=== PATIENT | female | born 1985 | race Asian ===

== ENCOUNTER 2025-10-10 11:38 | Inpatient (IN) ==
[2025-10-11] MEDS ORDERED: OXYTOCIN 30 UNITS/NSS 30 UNITS/500 ML BAG IV PRN (08:50)
[2025-10-11] MEDS ORDERED: ACETAMINOPHEN 500 MG TAB PO PRN (08:50)
[2025-10-11] MEDS ORDERED: LIDOCAINE 1% LOCAL 20 ML VIAL INFIL PRN (08:50)
[2025-10-11 09:15] LABS: Hematocrit (blood only) 38.4 % (37.0-47.0); Hemoglobin 13.0 g/dL (12.0-16.0); Mean Corpuscular Hemoglobin 29.5 pg (25.0-34.0); Mean Corpuscular Volume 87.3 fL (80.0-100.0); Platelet Count 140 K/uL (130-400); RDW Standard Deviation 48.1 fL (36.4-46.3); Red Blood Count 4.40 M/uL (4.20-5.40); White Blood Count 7.60 K/ul (4.8-10.8)
[2025-10-11] MEDS: OXYTOCIN 30 UNITS/NSS 30 UNITS/500 ML BAG IV PRN (10:12)
[2025-10-11] MEDS: LACTATED RINGER'S 1,000 ML IV PRN (10:12)
--- NOTE | 2025-10-11 10:14 | History & Physical Report ---
Date of Service October 11, 2025 Assessment & Plan (1) Chronic hypertension affecting : (2) Encounter for supervision of elderly primigravida: (3) Hypothyroidism affecting : (4) Diabetes mellitus affecting : (5) Encounter for induction of labor: Plan Mariaa is a 40-year-old G1, P0 currently at 40 weeks 0 days gestational age presents for induction of labor for chronic hypertension and type 2 diabetes. 1. Fetus: Category 1 tracing. 2. Labor: Cervical ripening Ordonez placed and will run oxytocin per regular protocol. Plan for rupture after Ordonez is out 3. GBS negative 4. Chronic hypertension: Blood pressure is within normal range at present we will continue to monitor. 5. Type II DM: Every hour glucose and will start insulin protocol if needed. Admission and Anticipated Discharge Date Admission Date: October 11, 2025 History of Present Illness Primary Care Provider: Bandar Ray MD Mariaa is a 40-year-old G1, P0 currently at 40 weeks 0 days presents for induction of labor for type 2 diabetes and chronic hypertension. and Delivery Plans DM Protocol (Type 2 DM on Metformin) *Baby ASA daily, start 12-28wks, continue until del - started 03/31 *Ophthalmology consult - reminded to schedule *Dietary consult - working with Rema *Qmonthly urine cultures * [id number] 06/29/25----normal *Twice weekly NST's @32 or 34wks *Serial Growth US starting 28wks *Baseline 24hr Urine and Q trimester *EKG (Cardio [id number]) - completed NL *Deliver by [facility] IOL 10/11/25 (see tasks - pt aware rec is by 39 03/27 d/t cHTN) Hypothyroid *Check TFTs Q4wks AMA *Weekly NST's @36 wks CHTN---No Meds *Baby ASA daily start 12-28 wks, continue until delivery *wkly NST's @32wks and twice wkly @36 wks *Serial Growth US @ 24 (doppler only if abnml) *Baseline 24hr urine (additioinal PRN) *weekly AMRITA's @ 32wk(If on Meds) *Deliver [id number] (If on Meds) *Deliver [id number] (Not on Meds) Smoking in says socially, rec dc Lab Results OB Labs: Blood Type O Positive 03/03/25 Antibody Screen NEGATIVE 03/03/25 Hgb 11.6 g/dl (12.0-16.0) L 07/29/25 Hct 35.5 % (37.0-47.0) L 07/29/25 MCV 85.4 fL (80.0-100.0) 03/03/25 Plt Count 213 K/uL (130-400) 03/03/25 Rubella IgG Antibody Immune (Immune) 03/03/25 Treponema pallidum Ab Negative (Negative) 07/29/25 Hep Bs Antigen Negative (Negative) 03/03/25 Hepatitis C Antibody Negative (Negative) 03/03/25 HIV 1&2 Ab/P24 Ag 4thGn Negative (Negative) 03/03/25 Maternal Serum AFP 27.6 ng/mL 04/28/25 OB Optional Labs: Chlamydia trachomatis RNA Not Detected (NotDetected) 03/03/25 Neisseria gonorrhoeae RNA Not Detected (NotDetected) 03/03/25 Thyroid Stimulating Hormone (TSH) 3.843 uIu/ml (0.300-4.500) 09/24/25 Alpha Fetoprotein Triple Screen SEE NOTE 04/28/25 Allergies Allergy/AdvReac Type Severity Reaction Status Date / Time No Known Allergies Allergy Verified 10/08/25 09:03 Home Medications Medication Instructions Recorded Confirmed Type docosahexaenoic acid [ DHA] PO 06/25/24 10/08/25 History omega 3-dha 500 mg-epa 100 mg-fish 1 cap PO DAILY 10/28/24 10/11/25 History oil capsule acetone (urine) test (Ketone Urine #50 ea 02/15/25 10/08/25 Rx Test strips) escitalopram oxalate 10 mg tablet 10 mg PO DAILY #60 tabs 02/16/25 10/11/25 Rx clobetasol topical 02/23/25 10/08/25 History blood sugar diagnostic (OneTouch #100 ea 03/18/25 10/08/25 Rx Verio test strips) lancets 33 gauge (OneTouch Delica #100 ea 03/18/25 10/08/25 Rx Plus Lancet) pen needle, diabetic 32 gauge x #100 ea 03/18/25 10/08/25 Rx 5/32" aspirin 81 mg tablet 81 mg PO DAILY 04/30/25 10/11/25 History blood-glucose sensor (Dexcom G7 #3 ea 06/07/25 10/08/25 Rx Sensor device) metformin 500 mg tablet,extended 500 mg PO BID #180 tabs 06/07/25 10/11/25 Rx release 24 hr choline bitartrate 800 mg PO 08/23/25 10/08/25 History ferrous sulfate 325 mg PO 08/23/25 10/08/25 History Novolog FlexPen U-100 Insulin 100 150 unit (1.5 mL) subcut DAILY 30 09/06/25 10/11/25 Rx unit/mL (3 mL) subcutaneous days #45 mL (insulin aspart U-100) Semglee(insulin glarg-yfgn)Pen 100 75 unit (0.75 mL) subcut QPM 30 09/06/25 10/08/25 Rx unit/mL (3 mL) subcutaneous days #30 mL (insulin glargine-yfgn) breast pump #1 ea 09/10/25 10/08/25 Rx levothyroxine 112 mcg tablet 112 mcg PO DAILY #100 tabs 09/27/25 10/11/25 Rx Patient History Medical History AMA (advanced maternal age) multigravida 35+ Thickened endometrium Pelvic pain Vulvar itching Anxiety Dyslipidemia PCOS (polycystic ovarian syndrome) Hypothyroid History of COVID-19 PCOS (polycystic ovarian syndrome) Diabetes mellitus, type 2 Hypothyroidism Hypertension Dyslipidemia Panic attacks Surgical History Uterine polyp Status post hysteroscopy Hx of dilation and curettage S/P surgery on nasal septum Family History Mother Arthritis Hypertension Father Hypertension Diabetes Dyslipidemia Stroke Sister Dyslipidemia PCOS (polycystic ovarian syndrome) Hypothyroid Uncle Tuberculosis Aunt Cancer Denies family history of Ovarian cancer Breast cancer Colorectal cancer Social History (Updated 10/11/25 @ 08:42 by Keri Bahena RN) Smoking Status: Former smoker Tobacco Type: Cigarettes Cigarettes Per Day: "occasionally when out with friends"; Second Hand Exposure: No; Do You Dip or Chew Tobacco: No; Tobacco Cessation Education Requested by Patient: No Hx Alcohol Use: Yes Hx Substance Use: No Preferred Language: Japanese Communication Ability: Effective Visual Impairment: No Limitations Radiologist Chief Of Breast Imaging Required: No Beliefs That Will Affect Care: None marital status: marital status details: Luciano Sam (50) [phone] Current Living Situation: Spouse Current Living Situation Comment: Lives alone current occupational status: employed 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 Other Information That Helps Us Care for You: No Feels Safe at Home: Yes Safety Concerns: Feels Safe At This Time Assistive Devices: Glasses Physical Exam Genitourinary: normal external appearance OB Exam Abdomen: + vertex Manual OB Exam: + cervical dilation 1 cm, + cervical effacement 50% and + station high OB Exam Monitor Tracing: + external FHT monitor used, + external uterine monitor used, + category I and + normal FHT variability Cervical Ordonez placed after patient verbally consented Results & Data Vital Signs (Past 12 Hours) Vital Signs Temp Pulse Resp BP 10/11/25 08:56 36.7 C 18 10/11/25 08:34 36.7 C 100 H 18 122/83 Coding Level of Care Code None Diagnoses Chronic hypertension affecting O10.919 Encounter for supervision of primigravida of advanced maternal age in third trimester O09.513 Trimester: third trimester Hypothyroidism affecting in third trimester O99.283; E03.9 Trimester: third trimester Diabetes mellitus affecting in third trimester O24.913 Trimester: third trimester Encounter for induction of labor Z34.90 (2) Encounter for supervision of elderly primigravida Trimester: third trimester Qualified Code(s): O09.513 - Supervision of elderly primigravida, third trimester (3) Hypothyroidism affecting Trimester: third trimester Qualified Code(s): O99.283 - Endocrine, nutritional and metabolic diseases complicating , third trimester; E03.9 - Hypothyroidism, unspecified (4) Diabetes mellitus affecting Trimester: third trimester Qualified Code(s): O24.913 - Unspecified diabetes mellitus in , third trimester
[2025-10-11] MEDS: CALCIUM CARBONATE 500 MG CHEWABLE TAB PO PRN (12:31)
[2025-10-11] MEDS ORDERED: LIDOCAINE 2% MPF LOCAL 5 ML VIAL EPI PRN (15:18)
[2025-10-11] MEDS ORDERED: SODIUM CHLORIDE 0.9% PF INJ 10 ML VIAL EPI PRN (15:18)
[2025-10-11] MEDS ORDERED: NALOXONE HCL 1 MG in SODIUM CHLORIDE 0.9% 1,000 ML IV PRN (15:18)
[2025-10-11] MEDS ORDERED: diphenhydrAMINE 50 MG/ML VIAL IV PRN (15:18)
[2025-10-11] MEDS ORDERED: NALBUPHINE HCL INJ 10 MG/ML AMP IV PRN (15:18)
[2025-10-11] MEDS ORDERED: NALOXONE HCL 0.4 MG/1 ML VIAL/CARP IV PRN (15:18)
[2025-10-11] MEDS ORDERED: PROMETHAZINE 6.25 MG/50.25 ML BAG IV PRN (15:18)
[2025-10-11] MEDS ORDERED: BUPIVACAINE 0.25% PF 30 ML VIAL EPI PRN (15:18)
[2025-10-11] MEDS ORDERED: ROPIVACAINE 0.5% PF 5 MG/ML 20 ML VIAL EPI PRN (15:18)
[2025-10-11] MEDS ORDERED: ONDANSETRON INJ 2 MG/ML 2 ML VIAL IV PRN (15:18)
--- NOTE | 2025-10-11 15:18 | Anesthesiology Consultation ---
Date of Service October 11, 2025 Assessment & Plan ASA ASA2 Proposed Anesthesia Anesthesia Type: Labor Epidural Risk / Benefits Reviewed With: PT / POA / Parent / Guardian, Accepts Plan and Informed Consent Obtained History Height/Weight Height: 5 ft 4 in Weight: 77.111 kg Allergies Allergy/AdvReac Type Severity Reaction Status Date / Time No Known Allergies Allergy Verified 10/08/25 09:03 Medications Home Medications Medication Instructions Recorded Confirmed Last Taken docosahexaenoic acid [ DHA] PO 06/25/24 10/08/25 Unknown omega 3-dha 500 mg-epa 100 mg-fish 1 cap PO DAILY 10/28/24 10/11/25 10/10/25 oil capsule acetone (urine) test (Ketone Urine #50 ea 02/15/25 10/08/25 Unknown Test strips) escitalopram oxalate 10 mg tablet 10 mg PO DAILY #60 tabs 02/16/25 10/11/25 Unknown clobetasol topical 02/23/25 10/08/25 Unknown blood sugar diagnostic (OneTouch #100 ea 03/18/25 10/08/25 Unknown Verio test strips) lancets 33 gauge (OneTouch Delica #100 ea 03/18/25 10/08/25 Unknown Plus Lancet) pen needle, diabetic 32 gauge x #100 ea 03/18/25 10/08/25 Unknown 5/32" aspirin 81 mg tablet 81 mg PO DAILY 04/30/25 10/11/25 10/11/25 blood-glucose sensor (Dexcom G7 #3 ea 06/07/25 10/08/25 Unknown Sensor device) metformin 500 mg tablet,extended 500 mg PO BID #180 tabs 06/07/25 10/11/25 10/10/25 release 24 hr choline bitartrate 800 mg PO 08/23/25 10/08/25 Unknown ferrous sulfate 325 mg PO 08/23/25 10/08/25 10/11/25 Novolog FlexPen U-100 Insulin 100 150 unit (1.5 mL) subcut DAILY 30 09/06/25 10/11/25 10/10/25 unit/mL (3 mL) subcutaneous days #45 mL (insulin aspart U-100) Semglee(insulin glarg-yfgn)Pen 100 75 unit (0.75 mL) subcut QPM 30 09/06/25 10/08/25 Unknown unit/mL (3 mL) subcutaneous days #30 mL (insulin glargine-yfgn) breast pump #1 ea 09/10/25 10/08/25 Unknown levothyroxine 112 mcg tablet 112 mcg PO DAILY #100 tabs 09/27/25 10/11/25 10/11/25 Active Medications Generic Name Dose Route Start Last Admin Trade Name Freq PRN Reason Stop Dose Admin Calcium Carbonate 1,000 mg 10/11/25 08:50 10/11/25 12:31 Calcium Carbonate 500 Mg Chewable Tab PO 11/10/25 08:49 1,000 mg Q8H PRN Administration Indigestion Lactated Ringer's 1,000 mls @ 125 mls/hr 10/11/25 08:50 10/11/25 10:12 Lr IV 10/13/25 08:49 125 mls/hr .Q8H PRN Administration L&D Protocol Protocol Oxytocin 30 units in 500 mls @ 12 mls/hr 10/11/25 08:52 10/11/25 14:15 Pitocin 30 Units/Nss IV 10/13/25 08:51 0.72 units/hr .Q24H PRN 12 mls/hr Labor Induction/Augmentation Titration Protocol 0.72 UNITS/HR Past Medical History Medical History AMA (advanced maternal age) multigravida 35+ Thickened endometrium Pelvic pain Vulvar itching Anxiety Dyslipidemia PCOS (polycystic ovarian syndrome) Hypothyroid History of COVID-2022, not hosp; used inhaler for about 1 month>resolved PCOS (polycystic ovarian syndrome) Diabetes mellitus, type 2 NIDDM Hypothyroidism Hypertension Dyslipidemia Panic attacks hx Exercise / Class Metabolic Activity II 4-5 Yardwork/Stairs/Walk up hill Past Family History Family History Mother Arthritis Hypertension Father Hypertension Diabetes Dyslipidemia Stroke Sister Dyslipidemia PCOS (polycystic ovarian syndrome) Hypothyroid Uncle Tuberculosis Aunt Cancer "blood cancer" Denies family history of Ovarian cancer Breast cancer Colorectal cancer Past Surgical History Surgical History Uterine polyp Removal 03/2024 Status post hysteroscopy 03/2024 Hx of dilation and curettage 03/2024 S/P surgery on nasal septum Past Anesthesia History No Hx of Anesthesia Complications and No Family Hx of Anesthesia Complications History of PONV No Hx of PONV and No Hx of Motion Sickness Social History Smoking Status: Former smoker Smoking cigarettes per day: "occasionally when out with friends" Do You Dip or Chew Tobacco: No Hx Alcohol Use: Yes alcohol intake frequency: holidays/special occasions only Hx Substance Use: No substance use type: does not use Review of Systems denies fever/cough/ colds/ chest pain/ SOB/ DANISH denies DANISH Physical Exam Vital Signs Last Vital Signs Temp 36.6 C 10/11/25 12:45 Pulse 67 10/11/25 14:33 Resp 18 10/11/25 14:33 BP 140/85 10/11/25 14:31 ENMT Mouth: no TMJ abnormality and no dentition abnormality Thyromental Distance: > or= 3.5 Finger Breadths Mallampati Class: II Neck neck extension not limited Respiratory normal respiratory effort; no respiratory distress Auscultation: lungs clear to auscultation bilaterally Cardiovascular Rate/Rhythm: regular rate and regular rhythm Neurologic moves all extremities Psychiatric Orientation: alert and oriented x 3 Testing Laboratory Results 10/11/25 08:59 Blood Type O Positive 10/11/25 08:59 Antibody Screen NEGATIVE 10/11/25 08:59 10/11/25 10/11/25 10/11/25 11:35 10:45 09:49 POC Glucose 92 104 H 109 H
[2025-10-11] MEDS: fentANYL 2 MCG/ML BUPIVacaine 0.125%-NSS 100ML BAG ONE (15:47)
[2025-10-11] MEDS: LIDOCAINE 2%/EPINEPHRINE 1:200,000 20 ML PF ONE (15:48)
[2025-10-11] MEDS: BUPIVACAINE 0.25% PF 30 ML VIAL ONE (15:48)
[2025-10-11] MEDS: SODIUM CHLORIDE 0.9% PF INJ 10 ML VIAL EPI STA (16:03)
[2025-10-11] MEDS: BUPIVACAINE 0.25% PF 30 ML VIAL EPI STA (16:03)
[2025-10-11] MEDS: LIDOCAINE 2%/EPINEPHRINE 1:200,000 20 ML PF EPI STA (16:03)
[2025-10-11] MEDS: SODIUM CHLORIDE 0.9% PF INJ 10 ML VIAL ONE (16:04)
--- NOTE | 2025-10-11 22:34 | Labor Progress Brief Note ---
Date of Service October 11, 2025 Subjective Presents to bedside for evaluation as cervical ripening Ordonez has expelled in the last hour. Patient comfortable with epidural. Blood sugars in the 100s to 110s Assessment & Plan (1) Chronic hypertension affecting : (2) Encounter for supervision of elderly primigravida: Trimester: third trimester Qualified Code(s): O09.513 - Supervision of elderly primigravida, third trimester (3) Hypothyroidism affecting : Trimester: third trimester Qualified Code(s): O99.283 - Endocrine, nutritional and metabolic diseases complicating , third trimester; E03.9 - Hypothyroidism, unspecified (4) Diabetes mellitus affecting : Trimester: third trimester Qualified Code(s): O24.913 - Unspecified diabetes mellitus in , third trimester (5) Encounter for induction of labor: Kameron Leroy is a 40-year-old G1, P0 currently at 40 weeks 0 days gestational age presents for induction of labor for chronic hypertension and type 2 diabetes. 1. Fetus: Category 1 tracing. 2. Labor: Status post cervical ripening Ordonez. Continue oxytocin per regular protocol. AROM for clear. 3. GBS negative 4. Chronic hypertension: Blood pressure is within normal range at present we will continue to monitor. 5. Type II DM: hourly glucose per Dexcom verified as accurate in comparison to labor and delivery bedside blood glucose. Will start insulin protocol if needed. Admission and Anticipated Discharge Date Admission Date: October 11, 2025 Physical Exam Genitourinary: normal external appearance Manual OB Exam: + cervical dilation 3 cm, + cervical effacement 50%, + station high and + amniotic fluid (AROM) clear OB Exam Monitor Tracing: + external FHT monitor used, + external uterine monitor used, + category I and + normal FHT variability Results & Data Vital Signs (Past 12 Hours) Vital Signs Temp Pulse Pulse Resp BP Pulse Ox Pulse Ox 10/11/25 22:29 101 H 98 10/11/25 22:26 100 H 120/81 10/11/25 22:24 97 H 98 10/11/25 22:19 97 H 98 10/11/25 22:14 110 H 97 10/11/25 22:11 107 H 121/82 10/11/25 22:09 113 H 97 10/11/25 22:04 110 H 97 10/11/25 22:00 18 10/11/25 22:00 36.8 C 18 10/11/25 21:59 101 H 98 10/11/25 21:54 107 H 100 10/11/25 21:49 99 H 99 10/11/25 21:44 103 H 99 10/11/25 21:43 101 H 125/82 10/11/25 21:39 99 H 98 10/11/25 21:34 101 H 98 10/11/25 21:30 18 10/11/25 21:30 18 10/11/25 21:29 98 H 98 10/11/25 21:27 96 H 131/84 10/11/25 21:24 100 H 98 10/11/25 21:19 99 H 97 10/11/25 21:14 105 H 99 10/11/25 21:12 96 H 134/86 10/11/25 21:09 100 H 98 10/11/25 21:04 99 H 97 10/11/25 21:00 18 10/11/25 21:00 18 10/11/25 20:59 101 H 99 10/11/25 20:58 105 H 123/81 10/11/25 20:54 102 H 97 10/11/25 20:49 110 H 98 10/11/25 20:44 118 H 98 10/11/25 20:42 103 H 134/85 10/11/25 20:39 108 H 98 10/11/25 20:34 103 H 97 10/11/25 20:30 18 10/11/25 20:30 18 10/11/25 20:29 99 10/11/25 20:29 107 H 10/11/25 20:29 97 H 127/84 10/11/25 20:23 112 H 97 10/11/25 20:18 103 H 99 10/11/25 20:13 102 H 97 10/11/25 20:12 114 H 123/86 10/11/25 20:08 108 H 99 10/11/25 20:03 124 H 100 10/11/25 20:00 18 10/11/25 20:00 18 10/11/25 19:58 110 H 99 10/11/25 19:56 109 H 114/68 10/11/25 19:53 115 H 99 10/11/25 19:48 111 H 99 10/11/25 19:43 113 H 100 10/11/25 19:41 117 H 107/68 10/11/25 19:38 117 H 100 10/11/25 19:33 126 H 100 10/11/25 19:30 18 10/11/25 19:30 18 10/11/25 19:28 114 H 104/70 99 10/11/25 19:23 112 H 100 10/11/25 19:18 111 H 99 10/11/25 19:13 120 H 99 10/11/25 19:08 117 H 100 10/11/25 19:03 117 H 98 10/11/25 19:02 37.0 C 18 10/11/25 19:00 18 10/11/25 19:00 18 10/11/25 18:58 100 10/11/25 18:58 120 H 10/11/25 18:58 115 H 119/75 10/11/25 18:53 106 H 98 10/11/25 18:48 112 H 98 10/11/25 18:43 124 H 98 10/11/25 18:42 114 H 122/76 10/11/25 18:38 106 H 98 10/11/25 18:33 115 H 99 10/11/25 18:28 98 10/11/25 18:28 120 H 10/11/25 18:28 114 H 128/75 10/11/25 18:23 117 H 100 10/11/25 18:18 118 H 98 10/11/25 18:13 115 H 99 10/11/25 18:12 100 H 128/79 10/11/25 18:08 114 H 100 10/11/25 18:03 108 H 100 10/11/25 17:58 98 H 129/95 98 10/11/25 17:53 99 H 100 10/11/25 17:48 103 H 99 10/11/25 17:43 100 10/11/25 17:43 103 H 10/11/25 17:43 105 H 133/87 10/11/25 17:38 105 H 100 10/11/25 17:33 96 H 99 10/11/25 17:28 115 H 100 10/11/25 17:27 93 H 141/90 H 10/11/25 17:23 97 H 100 10/11/25 17:18 107 H 100 10/11/25 17:13 99 H 100 10/11/25 17:11 99 H 140/89 10/11/25 17:08 97 H 99 10/11/25 17:03 98 H 96 10/11/25 17:00 18 10/11/25 17:00 18 10/11/25 16:58 101 H 100 10/11/25 16:57 99 H 139/80 10/11/25 16:53 102 H 100 10/11/25 16:48 88 100 10/11/25 16:43 87 100 10/11/25 16:42 87 154/97 H 10/11/25 16:39 81 147/85 H 10/11/25 16:38 85 100 10/11/25 16:37 96 H 137/81 10/11/25 16:35 82 136/86 10/11/25 16:34 85 134/75 10/11/25 16:33 82 98 10/11/25 16:31 85 91/63 L 10/11/25 16:30 83 87/54 L 10/11/25 16:28 81 100 10/11/25 16:25 75 102/63 10/11/25 16:23 93 10/11/25 16:23 76 10/11/25 16:23 79 80/47 L 94 10/11/25 16:21 81 97/63 L 10/11/25 16:18 88 100 10/11/25 16:16 88 100/59 L 10/11/25 16:13 89 100 10/11/25 16:08 104 H 99 10/11/25 16:03 106 H 100 10/11/25 16:00 36.6 C 98 H 18 130/78 10/11/25 15:58 100 10/11/25 15:58 104 H 10/11/25 15:58 104 H 122/78 10/11/25 15:56 101 H 121/82 10/11/25 15:54 98 H 122/83 10/11/25 15:53 102 H 99 10/11/25 15:52 93 H 124/82 10/11/25 15:51 93 H 119/80 10/11/25 15:50 88 128/86 10/11/25 15:48 99 10/11/25 15:48 92 H 10/11/25 15:48 89 133/87 10/11/25 15:46 85 126/87 10/11/25 15:43 78 99 10/11/25 15:38 93 H 100 10/11/25 15:35 98 10/11/25 15:33 89 99 10/11/25 15:26 91 H 129/91 10/11/25 14:45 18 10/11/25 14:45 18 10/11/25 14:33 67 18 10/11/25 14:31 43 L 140/85 10/11/25 14:26 44 L 129/83 10/11/25 13:45 18 10/11/25 13:45 18 10/11/25 13:27 83 130/84 10/11/25 12:45 18 10/11/25 12:45 36.6 C 18 10/11/25 12:25 89 18 112/86 10/11/25 11:26 94 H 18 125/85 O2 Del Method 10/11/25 22:29 10/11/25 22:26 10/11/25 22:24 10/11/25 22:19 10/11/25 22:14 10/11/25 22:11 10/11/25 22:09 10/11/25 22:04 10/11/25 22:00 10/11/25 22:00 10/11/25 21:59 10/11/25 21:54 10/11/25 21:49 10/11/25 21:44 10/11/25 21:43 10/11/25 21:39 10/11/25 21:34 10/11/25 21:30 10/11/25 21:30 10/11/25 21:29 10/11/25 21:27 10/11/25 21:24 10/11/25 21:19 10/11/25 21:14 10/11/25 21:12 10/11/25 21:09 10/11/25 21:04 10/11/25 21:00 10/11/25 21:00 10/11/25 20:59 10/11/25 20:58 10/11/25 20:54 10/11/25 20:49 10/11/25 20:44 10/11/25 20:42 10/11/25 20:39 10/11/25 20:34 10/11/25 20:30 10/11/25 20:30 10/11/25 20:29 10/11/25 20:29 10/11/25 20:29 10/11/25 20:23 10/11/25 20:18 10/11/25 20:13 10/11/25 20:12 10/11/25 20:08 10/11/25 20:03 10/11/25 20:00 10/11/25 20:00 10/11/25 19:58 10/11/25 19:56 10/11/25 19:53 10/11/25 19:48 10/11/25 19:43 10/11/25 19:41 10/11/25 19:38 10/11/25 19:33 10/11/25 19:30 10/11/25 19:30 10/11/25 19:28 10/11/25 19:23 10/11/25 19:18 10/11/25 19:13 10/11/25 19:08 10/11/25 19:03 10/11/25 19:02 10/11/25 19:00 10/11/25 19:00 10/11/25 18:58 10/11/25 18:58 10/11/25 18:58 10/11/25 18:53 10/11/25 18:48 10/11/25 18:43 10/11/25 18:42 10/11/25 18:38 10/11/25 18:33 10/11/25 18:28 10/11/25 18:28 10/11/25 18:28 10/11/25 18:23 10/11/25 18:18 10/11/25 18:13 10/11/25 18:12 10/11/25 18:08 10/11/25 18:03 10/11/25 17:58 10/11/25 17:53 10/11/25 17:48 10/11/25 17:43 10/11/25 17:43 10/11/25 17:43 10/11/25 17:38 10/11/25 17:33 10/11/25 17:28 10/11/25 17:27 10/11/25 17:23 10/11/25 17:18 10/11/25 17:13 10/11/25 17:11 10/11/25 17:08 10/11/25 17:03 10/11/25 17:00 10/11/25 17:00 10/11/25 16:58 10/11/25 16:57 10/11/25 16:53 10/11/25 16:48 10/11/25 16:43 10/11/25 16:42 10/11/25 16:39 10/11/25 16:38 10/11/25 16:37 10/11/25 16:35 10/11/25 16:34 10/11/25 16:33 10/11/25 16:31 10/11/25 16:30 10/11/25 16:28 10/11/25 16:25 10/11/25 16:23 10/11/25 16:23 10/11/25 16:23 10/11/25 16:21 10/11/25 16:18 10/11/25 16:16 10/11/25 16:13 10/11/25 16:08 10/11/25 16:03 10/11/25 16:00 10/11/25 15:58 10/11/25 15:58 10/11/25 15:58 10/11/25 15:56 10/11/25 15:54 10/11/25 15:53 10/11/25 15:52 10/11/25 15:51 10/11/25 15:50 10/11/25 15:48 10/11/25 15:48 10/11/25 15:48 10/11/25 15:46 10/11/25 15:43 10/11/25 15:38 10/11/25 15:35 Room Air 10/11/25 15:33 10/11/25 15:26 10/11/25 14:45 10/11/25 14:45 10/11/25 14:33 10/11/25 14:31 10/11/25 14:26 10/11/25 13:45 10/11/25 13:45 10/11/25 13:27 10/11/25 12:45 10/11/25 12:45 10/11/25 12:25 10/11/25 11:26 Coding Level of Care Code None Diagnoses Chronic hypertension affecting O10.919 Encounter for supervision of primigravida of advanced maternal age in third trimester O09.513 Trimester: third trimester Hypothyroidism affecting in third trimester O99.283; E03.9 Trimester: third trimester Diabetes mellitus affecting in third trimester O24.913 Trimester: third trimester Encounter for induction of labor Z34.90
[2025-10-11] MEDS: fentANYL 2 MCG/ML BUPIVacaine 0.125%-NSS 100ML BAG EPI PRN (23:27)
[2025-10-11] MEDS: FAMOTIDINE 20MG IV PUSH 20 MG/5 ML SYR IV SCH (23:34)
--- NOTE | 2025-10-12 06:37 | Labor Progress Brief Note ---
Date of Service October 12, 2025 Subjective Presented to bedside for evaluation. Contractions have spaced considerably. Assessment & Plan (1) Chronic hypertension affecting : (2) Encounter for supervision of elderly primigravida: Trimester: third trimester Qualified Code(s): O09.513 - Supervision of elderly primigravida, third trimester (3) Hypothyroidism affecting : Trimester: third trimester Qualified Code(s): O99.283 - Endocrine, nutritional and metabolic diseases complicating , third trimester; E03.9 - Hypothyroidism, unspecified (4) Diabetes mellitus affecting : Trimester: third trimester Qualified Code(s): O24.913 - Unspecified diabetes mellitus in , third trimester (5) Encounter for induction of labor: Kameron Leroy is a 40-year-old G1, P0 currently at 40 weeks 0 days gestational age presents for induction of labor for chronic hypertension and type 2 diabetes. 1. Fetus: Category 1 tracing. 2. Labor: Status post cervical ripening [place]. Contractions have spaced considerably. Will shut off Pitocin for a Pitocin break and will plan to restart back at 10 and approximately 20 to 30 minutes. AROM for clear. IUPC placed 3. GBS negative 4. Chronic hypertension: Blood pressure is within normal range at present we will continue to monitor. 5. Type II DM: hourly glucose per Dexcom verified as accurate in comparison to labor and delivery bedside blood glucose. Will start insulin protocol if needed. Has been in the 90s-110s Admission and Anticipated Discharge Date Admission Date: October 11, 2025 Physical Exam Genitourinary: normal external appearance Manual OB Exam: + cervical dilation (3-4), + cervical effacement 70%, + station high and + amniotic fluid clear OB Exam Monitor Tracing: + external FHT monitor used, + external uterine monitor used, + category I and + normal FHT variability Discussed placement of IUPC and patient verbally consented. IUPC placed without difficulty Results & Data Vital Signs (Past 12 Hours) Vital Signs Temp Pulse Resp BP Pulse Ox 10/12/25 06:29 90 100 10/12/25 06:28 90 127/83 10/12/25 06:24 90 99 10/12/25 06:19 96 H 98 10/12/25 06:14 89 98 10/12/25 06:12 87 130/87 10/12/25 06:09 92 H 99 10/12/25 06:04 90 98 10/12/25 06:00 18 10/12/25 06:00 18 10/12/25 05:59 88 98 10/12/25 05:57 90 132/84 10/12/25 05:54 88 99 10/12/25 05:49 91 H 100 10/12/25 05:44 97 H 99 10/12/25 05:42 93 H 109/67 10/12/25 05:39 92 H 98 10/12/25 05:34 95 H 97 10/12/25 05:30 18 10/12/25 05:30 18 10/12/25 05:29 94 H 109/65 98 10/12/25 05:24 92 H 98 10/12/25 05:19 93 H 97 10/12/25 05:14 95 H 98 10/12/25 05:11 93 H 112/68 10/12/25 05:09 94 H 98 10/12/25 05:04 94 H 98 10/12/25 05:00 18 10/12/25 05:00 36.8 C 18 10/12/25 04:59 95 H 97 10/12/25 04:56 93 H 116/68 10/12/25 04:54 93 H 97 10/12/25 04:49 95 H 98 10/12/25 04:44 98 H 98 10/12/25 04:41 96 H 114/68 10/12/25 04:39 94 H 97 10/12/25 04:34 94 H 97 10/12/25 04:29 94 H 97 10/12/25 04:26 94 H 110/65 10/12/25 04:24 94 H 97 10/12/25 04:19 95 H 97 10/12/25 04:14 95 H 97 10/12/25 04:12 93 H 108/60 10/12/25 04:09 95 H 96 10/12/25 04:04 101 H 97 10/12/25 03:59 97 H 97 10/12/25 03:56 98 H 108/66 10/12/25 03:54 98 H 96 10/12/25 03:49 106 H 96 10/12/25 03:44 95 H 96 10/12/25 03:41 100 H 108/65 10/12/25 03:39 96 H 97 10/12/25 03:34 98 H 97 10/12/25 03:29 99 H 97 10/12/25 03:26 96 H 105/63 10/12/25 03:24 99 H 98 10/12/25 03:19 94 H 99 10/12/25 03:14 91 H 99 10/12/25 03:12 93 H 120/78 10/12/25 03:09 89 97 10/12/25 03:04 89 97 10/12/25 03:00 18 10/12/25 03:00 36.8 C 18 10/12/25 02:59 88 97 10/12/25 02:57 86 128/75 10/12/25 02:54 91 H 97 10/12/25 02:49 90 99 10/12/25 02:44 89 97 10/12/25 02:41 95 H 124/81 10/12/25 02:39 88 97 10/12/25 02:34 88 98 10/12/25 02:30 16 10/12/25 02:30 16 10/12/25 02:29 89 97 10/12/25 02:27 94 H 126/80 10/12/25 02:24 91 H 97 10/12/25 02:19 93 H 96 10/12/25 02:14 92 H 97 10/12/25 02:12 94 H 124/84 10/12/25 02:09 95 H 97 10/12/25 02:04 91 H 96 10/12/25 02:00 18 10/12/25 02:00 18 10/12/25 01:59 89 97 10/12/25 01:57 92 H 124/82 10/12/25 01:54 92 H 97 10/12/25 01:49 93 H 97 10/12/25 01:44 96 H 97 10/12/25 01:43 94 H 129/83 10/12/25 01:39 94 H 97 10/12/25 01:34 104 H 97 10/12/25 01:30 20 10/12/25 01:30 20 10/12/25 01:29 99 H 97 10/12/25 01:26 100 H 122/81 10/12/25 01:24 99 H 97 10/12/25 01:19 102 H 97 10/12/25 01:14 104 H 98 10/12/25 01:12 99 H 121/76 10/12/25 01:09 101 H 97 10/12/25 01:04 100 H 97 10/12/25 01:00 18 10/12/25 01:00 36.7 C 18 10/12/25 00:59 100 H 98 10/12/25 00:56 100 H 107/64 10/12/25 00:54 99 H 97 10/12/25 00:49 99 H 97 10/12/25 00:44 100 H 97 10/12/25 00:41 96 H 112/66 10/12/25 00:39 100 H 97 10/12/25 00:34 101 H 96 10/12/25 00:30 18 10/12/25 00:30 18 10/12/25 00:29 97 H 98 10/12/25 00:26 100 H 120/73 10/12/25 00:24 100 H 98 10/12/25 00:19 93 H 98 10/12/25 00:14 95 H 97 10/12/25 00:11 94 H 126/79 10/12/25 00:09 100 H 99 10/12/25 00:04 93 H 97 10/12/25 00:00 18 10/12/25 00:00 18 10/11/25 23:59 104 H 99 10/11/25 23:58 93 H 126/81 10/11/25 23:54 92 H 98 10/11/25 23:49 94 H 97 10/11/25 23:44 97 H 97 10/11/25 23:42 95 H 126/82 10/11/25 23:39 97 H 97 10/11/25 23:34 101 H 99 10/11/25 23:30 18 10/11/25 23:30 18 10/11/25 23:29 95 H 97 10/11/25 23:27 36.7 C 96 H 18 118/76 10/11/25 23:24 96 H 96 10/11/25 23:19 100 H 99 10/11/25 23:14 95 H 96 10/11/25 23:11 100 H 124/85 10/11/25 23:09 101 H 98 10/11/25 23:04 102 H 97 10/11/25 23:00 18 10/11/25 23:00 18 10/11/25 22:59 101 H 96 10/11/25 22:56 99 H 114/78 10/11/25 22:54 104 H 98 10/11/25 22:49 101 H 98 10/11/25 22:44 98 H 97 10/11/25 22:41 97 H 124/80 10/11/25 22:39 99 H 96 10/11/25 22:34 98 H 98 10/11/25 22:29 101 H 98 10/11/25 22:26 36.8 C 100 H 18 120/81 10/11/25 22:24 97 H 98 10/11/25 22:19 97 H 98 10/11/25 22:14 110 H 97 10/11/25 22:11 107 H 121/82 10/11/25 22:09 113 H 97 10/11/25 22:04 110 H 97 10/11/25 22:00 18 10/11/25 22:00 36.8 C 18 10/11/25 21:59 101 H 98 10/11/25 21:54 107 H 100 10/11/25 21:49 99 H 99 10/11/25 21:44 103 H 99 10/11/25 21:43 101 H 125/82 10/11/25 21:39 99 H 98 10/11/25 21:34 101 H 98 10/11/25 21:30 18 10/11/25 21:30 18 10/11/25 21:29 98 H 98 10/11/25 21:27 96 H 131/84 10/11/25 21:24 100 H 98 10/11/25 21:19 99 H 97 10/11/25 21:14 105 H 99 10/11/25 21:12 96 H 134/86 10/11/25 21:09 100 H 98 10/11/25 21:04 99 H 97 10/11/25 21:00 18 10/11/25 21:00 18 10/11/25 20:59 101 H 99 10/11/25 20:58 105 H 123/81 10/11/25 20:54 102 H 97 10/11/25 20:49 110 H 98 10/11/25 20:44 118 H 98 10/11/25 20:42 103 H 134/85 10/11/25 20:39 108 H 98 12/22/25 20:34 103 H 97 10/11/25 20:30 18 10/11/25 20:30 18 10/11/25 20:29 99 10/11/25 20:29 107 H 10/11/25 20:29 97 H 127/84 10/11/25 20:23 112 H 97 10/11/25 20:18 103 H 99 10/11/25 20:13 102 H 97 10/11/25 20:12 114 H 123/86 10/11/25 20:08 108 H 99 10/11/25 20:03 124 H 100 10/11/25 20:00 18 10/11/25 20:00 18 10/11/25 19:58 110 H 99 10/11/25 19:56 109 H 114/68 10/11/25 19:53 115 H 99 10/11/25 19:48 111 H 99 10/11/25 19:43 113 H 100 10/11/25 19:41 117 H 107/68 10/11/25 19:38 117 H 100 10/11/25 19:33 126 H 100 10/11/25 19:30 18 10/11/25 19:30 18 10/11/25 19:28 114 H 104/70 99 10/11/25 19:23 112 H 100 10/11/25 19:18 111 H 99 10/11/25 19:13 120 H 99 10/11/25 19:08 117 H 100 10/11/25 19:03 117 H 98 10/11/25 19:02 37.0 C 18 10/11/25 19:00 18 10/11/25 19:00 18 10/11/25 18:58 100 10/11/25 18:58 120 H 10/11/25 18:58 115 H 119/75 10/11/25 18:53 106 H 98 10/11/25 18:48 112 H 98 10/11/25 18:43 124 H 98 10/11/25 18:42 114 H 122/76 10/11/25 18:38 106 H 98 Coding Level of Care Code None Diagnoses Chronic hypertension affecting O10.919 Encounter for supervision of primigravida of advanced maternal age in third trimester O09.513 Trimester: third trimester Hypothyroidism affecting in third trimester O99.283; E03.9 Trimester: third trimester Diabetes mellitus affecting in third trimester O24.913 Trimester: third trimester Encounter for induction of labor Z34.90
[2025-10-12] MEDS ORDERED: OXYTOCIN 30 UNITS/NSS 30 UNITS/500 ML BAG IV PRN (07:09)
[2025-10-12] MEDS: LEVOTHYROXINE SODIUM 112 MCG TABLET PO SCH (07:35)
--- NOTE | 2025-10-12 10:54 | Labor Progress Brief Note ---
Date of Service October 12, 2025 Subjective comfortable, notes exhausted Assessment & Plan (1) Encounter for induction of labor: (2) Chronic hypertension affecting : (3) Diabetes mellitus affecting : Trimester: third trimester Qualified Code(s): O24.913 - Unspecified diabetes mellitus in , third trimester Plan Discussed situation, not adequate and having a hard time getting adequate. Discussed only so much I can do to get her adequate. Aiming for pit max of 30 and then would stay there for at least an hour to see if can get adequate. If cannot, will need to proceed with c/s for failure to labor/progress. They expressed understanding. fetus category one. Admission and Anticipated Discharge Date Admission Date: October 11, 2025 Physical Exam Physical Exam: cx--4/60/-2 toco--q2-4min, pit at 24, not adequate pattern at this point efm--140s with mod variability, accels present, no decels Results & Data Vital Signs (Past 12 Hours) Vital Signs Temp Pulse Resp BP Pulse Ox O2 Del Method 10/12/25 10:49 91 H 100 10/12/25 10:44 88 100 10/12/25 10:42 87 126/84 10/12/25 10:39 86 98 10/12/25 10:34 87 99 10/12/25 10:30 18 10/12/25 10:30 18 10/12/25 10:29 88 100 10/12/25 10:27 90 130/85 10/12/25 10:24 85 98 10/12/25 10:19 86 99 10/12/25 10:14 85 99 10/12/25 10:11 87 128/84 10/12/25 10:09 86 99 10/12/25 10:04 86 99 10/12/25 10:00 18 10/12/25 10:00 18 10/12/25 09:59 90 99 10/12/25 09:57 85 129/85 10/12/25 09:54 96 H 100 10/12/25 09:49 91 H 99 10/12/25 09:44 91 H 98 10/12/25 09:41 97 H 120/84 10/12/25 09:39 91 H 97 10/12/25 09:34 91 H 97 10/12/25 09:30 18 10/12/25 09:30 18 10/12/25 09:29 95 H 97 10/12/25 09:27 94 H 116/76 10/12/25 09:24 92 H 97 10/12/25 09:19 92 H 98 10/12/25 09:14 90 97 10/12/25 09:11 94 H 113/73 10/12/25 09:10 16 10/12/25 09:10 37.1 C 16 10/12/25 09:09 97 H 97 10/12/25 09:04 90 97 10/12/25 09:00 18 10/12/25 09:00 18 10/12/25 08:59 90 97 10/12/25 08:58 88 113/68 10/12/25 08:54 90 98 10/12/25 08:49 90 97 10/12/25 08:44 90 97 10/12/25 08:43 93 H 110/73 10/12/25 08:39 83 98 10/12/25 08:34 81 97 10/12/25 08:29 82 98 10/12/25 08:27 82 130/81 10/12/25 08:24 81 97 10/12/25 08:19 88 98 10/12/25 08:14 86 98 10/12/25 08:13 82 132/82 10/12/25 08:09 88 98 10/12/25 08:04 82 98 10/12/25 08:00 16 10/12/25 08:00 16 10/12/25 07:59 88 98 10/12/25 07:56 86 130/86 10/12/25 07:54 82 98 10/12/25 07:49 90 98 10/12/25 07:44 87 98 10/12/25 07:42 85 129/84 10/12/25 07:39 89 98 10/12/25 07:34 94 H 98 10/12/25 07:30 18 10/12/25 07:30 18 10/12/25 07:29 90 98 10/12/25 07:28 86 125/83 10/12/25 07:24 89 99 10/12/25 07:21 Room Air 10/12/25 07:19 90 98 10/12/25 07:14 90 99 10/12/25 07:13 36.8 C 87 18 130/83 10/12/25 07:09 90 99 10/12/25 07:04 96 H 98 10/12/25 06:59 87 98 10/12/25 06:58 85 130/81 10/12/25 06:54 88 98 10/12/25 06:49 87 98 10/12/25 06:44 89 97 10/12/25 06:41 86 129/81 10/12/25 06:39 90 98 10/12/25 06:34 91 H 98 10/12/25 06:29 90 100 10/12/25 06:28 90 127/83 10/12/25 06:24 90 99 10/12/25 06:19 96 H 98 10/12/25 06:14 89 98 10/12/25 06:12 87 130/87 10/12/25 06:09 92 H 99 10/12/25 06:04 90 98 10/12/25 06:00 18 10/12/25 06:00 18 10/12/25 05:59 88 98 10/12/25 05:57 90 132/84 10/12/25 05:54 88 99 10/12/25 05:49 91 H 100 10/12/25 05:44 97 H 99 10/12/25 05:42 93 H 109/67 10/12/25 05:39 92 H 98 10/12/25 05:34 95 H 97 10/12/25 05:30 18 10/12/25 05:30 18 10/12/25 05:29 94 H 109/65 98 10/12/25 05:24 92 H 98 10/12/25 05:19 93 H 97 10/12/25 05:14 95 H 98 10/12/25 05:11 93 H 112/68 10/12/25 05:09 94 H 98 10/12/25 05:04 94 H 98 10/12/25 05:00 18 10/12/25 05:00 36.8 C 18 10/12/25 04:59 95 H 97 10/12/25 04:56 93 H 116/68 10/12/25 04:54 93 H 97 10/12/25 04:49 95 H 98 10/12/25 04:44 98 H 98 10/12/25 04:41 96 H 114/68 10/12/25 04:39 94 H 97 10/12/25 04:34 94 H 97 10/12/25 04:29 94 H 97 10/12/25 04:26 94 H 110/65 10/12/25 04:24 94 H 97 10/12/25 04:19 95 H 97 10/12/25 04:14 95 H 97 10/12/25 04:12 93 H 108/60 10/12/25 04:09 95 H 96 10/12/25 04:04 101 H 97 10/12/25 03:59 97 H 97 10/12/25 03:56 98 H 108/66 10/12/25 03:54 98 H 96 10/12/25 03:49 106 H 96 10/12/25 03:44 95 H 96 10/12/25 03:41 100 H 108/65 10/12/25 03:39 96 H 97 10/12/25 03:34 98 H 97 10/12/25 03:29 99 H 97 10/12/25 03:26 96 H 105/63 10/12/25 03:24 99 H 98 10/12/25 03:19 94 H 99 10/12/25 03:14 91 H 99 10/12/25 03:12 93 H 120/78 10/12/25 03:09 89 97 10/12/25 03:04 89 97 10/12/25 03:00 18 10/12/25 03:00 36.8 C 18 10/12/25 02:59 88 97 10/12/25 02:57 86 128/75 10/12/25 02:54 91 H 97 10/12/25 02:49 90 99 10/12/25 02:44 89 97 10/12/25 02:41 95 H 124/81 10/12/25 02:39 88 97 10/12/25 02:34 88 98 10/12/25 02:30 16 10/12/25 02:30 16 10/12/25 02:29 89 97 10/12/25 02:27 94 H 126/80 10/12/25 02:24 91 H 97 10/12/25 02:19 93 H 96 10/12/25 02:14 92 H 97 10/12/25 02:12 94 H 124/84 10/12/25 02:09 95 H 97 10/12/25 02:04 91 H 96 10/12/25 02:00 18 10/12/25 02:00 18 10/12/25 01:59 89 97 10/12/25 01:57 92 H 124/82 10/12/25 01:54 92 H 97 10/12/25 01:49 93 H 97 10/12/25 01:44 96 H 97 10/12/25 01:43 94 H 129/83 10/12/25 01:39 94 H 97 10/12/25 01:34 104 H 97 10/12/25 01:30 20 10/12/25 01:30 20 10/12/25 01:29 99 H 97 10/12/25 01:26 100 H 122/81 10/12/25 01:24 99 H 97 10/12/25 01:19 102 H 97 10/12/25 01:14 104 H 98 10/12/25 01:12 99 H 121/76 10/12/25 01:09 101 H 97 10/12/25 01:04 100 H 97 10/12/25 01:00 18 10/12/25 01:00 36.7 C 18 10/12/25 00:59 100 H 98 10/12/25 00:56 100 H 107/64 10/12/25 00:54 99 H 97 10/12/25 00:49 99 H 97 10/12/25 00:44 100 H 97 10/12/25 00:41 96 H 112/66 10/12/25 00:39 100 H 97 10/12/25 00:34 101 H 96 10/12/25 00:30 18 10/12/25 00:30 18 10/12/25 00:29 97 H 98 10/12/25 00:26 100 H 120/73 10/12/25 00:24 100 H 98 10/12/25 00:19 93 H 98 10/12/25 00:14 95 H 97 10/12/25 00:11 94 H 126/79 10/12/25 00:09 100 H 99 10/12/25 00:04 93 H 97 10/12/25 00:00 18 10/12/25 00:00 18 10/11/25 23:59 104 H 99 10/11/25 23:58 93 H 126/81 10/11/25 23:54 92 H 98 10/11/25 23:49 94 H 97 10/11/25 23:44 97 H 97 10/11/25 23:42 95 H 126/82 10/11/25 23:39 97 H 97 10/11/25 23:34 101 H 99 10/11/25 23:30 18 10/11/25 23:30 18 10/11/25 23:29 95 H 97 10/11/25 23:27 36.7 C 96 H 18 118/76 10/11/25 23:24 96 H 96 10/11/25 23:19 100 H 99 10/11/25 23:14 95 H 96 10/11/25 23:11 100 H 124/85 10/11/25 23:09 101 H 98 10/11/25 23:04 102 H 97 10/11/25 23:00 18 10/11/25 23:00 18 10/11/25 22:59 101 H 96 10/11/25 22:56 99 H 114/78 10/11/25 22:54 104 H 98 Coding Level of Care Code None Diagnoses Encounter for induction of labor Z34.90 Chronic hypertension affecting O10.919 Diabetes mellitus affecting in third trimester O24.913 Trimester: third trimester
--- NOTE | 2025-10-12 15:16 | Labor Progress Brief Note ---
Date of Service October 12, 2025 Subjective comfortable Assessment & Plan (1) Encounter for induction of labor: Plan Definite change. Still not an adequate labor pattern but making change. Will hold at 30 and see what happens. Fetus category one. Discussed that at the end of this , if we get her to complete, she is going to have to push this baby out. Admission and Anticipated Discharge Date Admission Date: October 11, 2025 Physical Exam Physical Exam: cx--/-2, definite change toco--q1-3, pit at 30, iupc fell out efm--140s with mod variability, small accels , occasional early decel Results & Data Vital Signs (Past 12 Hours) Vital Signs Temp Pulse Resp BP Pulse Ox O2 Del Method 10/12/25 15:12 109 H 144/99 H 10/12/25 15:09 94 H 100 10/12/25 15:04 93 H 100 10/12/25 15:00 18 10/12/25 15:00 18 10/12/25 14:59 94 H 100 10/12/25 14:56 101 H 144/98 H 10/12/25 14:54 96 H 99 10/12/25 14:49 96 H 99 10/12/25 14:44 99 H 100 10/12/25 14:41 96 H 133/90 10/12/25 14:39 99 H 99 10/12/25 14:34 97 H 100 10/12/25 14:30 16 10/12/25 14:30 16 10/12/25 14:29 101 H 100 10/12/25 14:26 96 H 140/97 10/12/25 14:24 105 H 99 10/12/25 14:19 94 H 100 10/12/25 14:14 92 H 100 10/12/25 14:11 93 H 129/92 10/12/25 14:09 94 H 100 10/12/25 14:04 93 H 100 10/12/25 14:00 18 10/12/25 14:00 18 10/12/25 13:59 94 H 100 10/12/25 13:56 91 H 134/90 10/12/25 13:54 95 H 96 10/12/25 13:49 90 99 10/12/25 13:44 91 H 99 10/12/25 13:42 90 129/89 10/12/25 13:39 100 H 98 10/12/25 13:34 93 H 98 10/12/25 13:30 16 10/12/25 13:30 36.8 C 16 10/12/25 13:29 97 H 98 10/12/25 13:27 100 H 123/75 10/12/25 13:24 95 H 97 10/12/25 13:19 99 H 98 10/12/25 13:14 92 H 98 10/12/25 13:13 90 123/75 10/12/25 13:09 92 H 97 10/12/25 13:04 93 H 98 10/12/25 12:59 91 H 97 10/12/25 12:57 90 127/77 10/12/25 12:54 92 H 98 10/12/25 12:49 92 H 97 10/12/25 12:44 92 H 98 10/12/25 12:41 93 H 125/74 10/12/25 12:39 92 H 98 10/12/25 12:34 94 H 98 10/12/25 12:29 92 H 99 10/12/25 12:27 92 H 121/76 10/12/25 12:24 95 H 98 10/12/25 12:19 93 H 99 10/12/25 12:14 92 H 99 10/12/25 12:12 93 H 126/76 10/12/25 12:09 95 H 99 10/12/25 12:04 92 H 98 10/12/25 11:59 94 H 99 10/12/25 11:58 99 H 114/73 10/12/25 11:54 91 H 98 10/12/25 11:49 95 H 99 10/12/25 11:44 98 H 100 10/12/25 11:41 96 H 139/95 10/12/25 11:39 93 H 100 10/12/25 11:34 92 H 99 10/12/25 11:30 20 10/12/25 11:30 20 10/12/25 11:29 97 H 100 10/12/25 11:26 96 H 137/93 10/12/25 11:24 92 H 100 10/12/25 11:19 95 H 100 10/12/25 11:14 93 H 100 10/12/25 11:11 96 H 133/90 10/12/25 11:10 16 10/12/25 11:10 36.7 C 16 10/12/25 11:09 105 H 100 10/12/25 11:04 101 H 100 10/12/25 11:00 18 10/12/25 11:00 18 10/12/25 10:59 89 100 10/12/25 10:57 90 129/88 10/12/25 10:54 91 H 100 10/12/25 10:49 91 H 100 10/12/25 10:44 88 100 10/12/25 10:42 87 126/84 10/12/25 10:39 86 98 10/12/25 10:34 87 99 10/12/25 10:30 18 10/12/25 10:30 18 10/12/25 10:29 88 100 10/12/25 10:27 90 130/85 10/12/25 10:24 85 98 10/12/25 10:19 86 99 10/12/25 10:14 85 99 10/12/25 10:11 87 128/84 10/12/25 10:09 86 99 10/12/25 10:04 86 99 10/12/25 10:00 18 10/12/25 10:00 18 10/12/25 09:59 90 99 10/12/25 09:57 85 129/85 10/12/25 09:54 96 H 100 10/12/25 09:49 91 H 99 10/12/25 09:44 91 H 98 10/12/25 09:41 97 H 120/84 10/12/25 09:39 91 H 97 10/12/25 09:34 91 H 97 10/12/25 09:30 18 10/12/25 09:30 18 10/12/25 09:29 95 H 97 10/12/25 09:27 94 H 116/76 10/12/25 09:24 92 H 97 10/12/25 09:19 92 H 98 10/12/25 09:14 90 97 10/12/25 09:11 94 H 113/73 10/12/25 09:10 16 10/12/25 09:10 37.1 C 16 10/12/25 09:09 97 H 97 10/12/25 09:04 90 97 10/12/25 09:00 18 10/12/25 09:00 18 10/12/25 08:59 90 97 10/12/25 08:58 88 113/68 10/12/25 08:54 90 98 10/12/25 08:49 90 97 10/12/25 08:44 90 97 10/12/25 08:43 93 H 110/73 10/12/25 08:39 83 98 10/12/25 08:34 81 97 10/12/25 08:29 82 98 10/12/25 08:27 82 130/81 10/12/25 08:24 81 97 10/12/25 08:19 88 98 10/12/25 08:14 86 98 10/12/25 08:13 82 132/82 10/12/25 08:09 88 98 10/12/25 08:04 82 98 10/12/25 08:00 16 10/12/25 08:00 16 10/12/25 07:59 88 98 10/12/25 07:56 86 130/86 10/12/25 07:54 82 98 10/12/25 07:49 90 98 10/12/25 07:44 87 98 10/12/25 07:42 85 129/84 10/12/25 07:39 89 98 10/12/25 07:34 94 H 98 10/12/25 07:30 18 10/12/25 07:30 18 10/12/25 07:29 90 98 10/12/25 07:28 86 125/83 10/12/25 07:24 89 99 10/12/25 07:21 Room Air 10/12/25 07:19 90 98 10/12/25 07:14 90 99 10/12/25 07:13 36.8 C 87 18 130/83 10/12/25 07:09 90 99 10/12/25 07:04 96 H 98 10/12/25 06:59 87 98 10/12/25 06:58 85 130/81 10/12/25 06:54 88 98 10/12/25 06:49 87 98 10/12/25 06:44 89 97 10/12/25 06:41 86 129/81 10/12/25 06:39 90 98 10/12/25 06:34 91 H 98 10/12/25 06:29 90 100 10/12/25 06:28 90 127/83 10/12/25 06:24 90 99 10/12/25 06:19 96 H 98 10/12/25 06:14 89 98 10/12/25 06:12 87 130/87 10/12/25 06:09 92 H 99 10/12/25 06:04 90 98 10/12/25 06:00 18 10/12/25 06:00 18 10/12/25 05:59 88 98 10/12/25 05:57 90 132/84 10/12/25 05:54 88 99 10/12/25 05:49 91 H 100 10/12/25 05:44 97 H 99 10/12/25 05:42 93 H 109/67 10/12/25 05:39 92 H 98 10/12/25 05:34 95 H 97 10/12/25 05:30 18 10/12/25 05:30 18 10/12/25 05:29 94 H 109/65 98 10/12/25 05:24 92 H 98 10/12/25 05:19 93 H 97 10/12/25 05:14 95 H 98 10/12/25 05:11 93 H 112/68 10/12/25 05:09 94 H 98 10/12/25 05:04 94 H 98 10/12/25 05:00 18 10/12/25 05:00 36.8 C 18 10/12/25 04:59 95 H 97 10/12/25 04:56 93 H 116/68 10/12/25 04:54 93 H 97 10/12/25 04:49 95 H 98 10/12/25 04:44 98 H 98 10/12/25 04:41 96 H 114/68 10/12/25 04:39 94 H 97 10/12/25 04:34 94 H 97 10/12/25 04:29 94 H 97 10/12/25 04:26 94 H 110/65 10/12/25 04:24 94 H 97 10/12/25 04:19 95 H 97 10/12/25 04:14 95 H 97 10/12/25 04:12 93 H 108/60 10/12/25 04:09 95 H 96 10/12/25 04:04 101 H 97 10/12/25 03:59 97 H 97 10/12/25 03:56 98 H 108/66 10/12/25 03:54 98 H 96 10/12/25 03:49 106 H 96 10/12/25 03:44 95 H 96 10/12/25 03:41 100 H 108/65 10/12/25 03:39 96 H 97 10/12/25 03:34 98 H 97 10/12/25 03:29 99 H 97 10/12/25 03:26 96 H 105/63 10/12/25 03:24 99 H 98 10/12/25 03:19 94 H 99 Coding Level of Care Code None Diagnoses Encounter for induction of labor Z34.90
--- NOTE | 2025-10-12 17:05 | Labor Progress Brief Note ---
Date of Service October 12, 2025 Subjective comfortable Assessment & Plan (1) Encounter for induction of labor: Plan continue current management. fetus overall category one. finally making change despite contraction pattern. Admission and Anticipated Discharge Date Admission Date: October 11, 2025 Physical Exam Physical Exam: cx--7-8/100/-1 toco--q2-4min, pit continues at 30 efm--130s with mod variability, small accels, occasional variable/early Results & Data Vital Signs (Past 12 Hours) Vital Signs Temp Pulse Resp BP Pulse Ox O2 Del Method 10/12/25 16:59 103 H 100 10/12/25 16:57 102 H 135/86 10/12/25 16:54 18 10/12/25 16:54 37.1 C 100 H 18 100 10/12/25 16:49 97 H 100 10/12/25 16:47 93 H 150/94 H 10/12/25 16:44 98 H 100 10/12/25 16:41 99 H 147/94 H 10/12/25 16:39 96 H 100 10/12/25 16:34 95 H 100 10/12/25 16:30 16 10/12/25 16:30 16 10/12/25 16:29 95 H 100 10/12/25 16:26 96 H 135/89 10/12/25 16:24 97 H 100 10/12/25 16:19 95 H 100 10/12/25 16:14 95 H 100 10/12/25 16:12 90 138/90 10/12/25 16:09 98 H 100 10/12/25 16:04 91 H 100 10/12/25 15:59 92 H 100 10/12/25 15:58 91 H 139/90 10/12/25 15:54 94 H 99 10/12/25 15:49 97 H 98 10/12/25 15:44 96 H 100 10/12/25 15:42 98 H 131/81 10/12/25 15:39 99 H 100 10/12/25 15:34 97 H 100 10/12/25 15:30 18 10/12/25 15:30 37.4 C 18 10/12/25 15:29 98 H 100 10/12/25 15:27 97 H 126/78 10/12/25 15:24 97 H 100 10/12/25 15:19 99 H 100 10/12/25 15:14 97 H 100 10/12/25 15:12 109 H 144/99 H 10/12/25 15:09 94 H 100 10/12/25 15:04 93 H 100 10/12/25 15:00 18 10/12/25 15:00 18 10/12/25 14:59 94 H 100 10/12/25 14:56 101 H 144/98 H 10/12/25 14:54 96 H 99 10/12/25 14:49 96 H 99 10/12/25 14:44 99 H 100 10/12/25 14:41 96 H 133/90 10/12/25 14:39 99 H 99 10/12/25 14:34 97 H 100 10/12/25 14:30 16 10/12/25 14:30 16 10/12/25 14:29 101 H 100 10/12/25 14:26 96 H 140/97 10/12/25 14:24 105 H 99 10/12/25 14:19 94 H 100 10/12/25 14:14 92 H 100 10/12/25 14:11 93 H 129/92 10/12/25 14:09 94 H 100 10/12/25 14:04 93 H 100 10/12/25 14:00 18 10/12/25 14:00 18 10/12/25 13:59 94 H 100 10/12/25 13:56 91 H 134/90 10/12/25 13:54 95 H 96 10/12/25 13:49 90 99 10/12/25 13:44 91 H 99 10/12/25 13:42 90 129/89 10/12/25 13:39 100 H 98 10/12/25 13:34 93 H 98 10/12/25 13:30 16 10/12/25 13:30 36.8 C 16 10/12/25 13:29 97 H 98 10/12/25 13:27 100 H 123/75 10/12/25 13:24 95 H 97 10/12/25 13:19 99 H 98 10/12/25 13:14 92 H 98 10/12/25 13:13 90 123/75 10/12/25 13:09 92 H 97 10/12/25 13:04 93 H 98 10/12/25 12:59 91 H 97 10/12/25 12:57 90 127/77 10/12/25 12:54 92 H 98 10/12/25 12:49 92 H 97 10/12/25 12:44 92 H 98 10/12/25 12:41 93 H 125/74 10/12/25 12:39 92 H 98 10/12/25 12:34 94 H 98 10/12/25 12:29 92 H 99 10/12/25 12:27 92 H 121/76 10/12/25 12:24 95 H 98 10/12/25 12:19 93 H 99 10/12/25 12:14 92 H 99 10/12/25 12:12 93 H 126/76 10/12/25 12:09 95 H 99 10/12/25 12:04 92 H 98 10/12/25 11:59 94 H 99 10/12/25 11:58 99 H 114/73 10/12/25 11:54 91 H 98 10/12/25 11:49 95 H 99 10/12/25 11:44 98 H 100 10/12/25 11:41 96 H 139/95 10/12/25 11:39 93 H 100 10/12/25 11:34 92 H 99 10/12/25 11:30 20 10/12/25 11:30 20 10/12/25 11:29 97 H 100 10/12/25 11:26 96 H 137/93 10/12/25 11:24 92 H 100 10/12/25 11:19 95 H 100 10/12/25 11:14 93 H 100 10/12/25 11:11 96 H 133/90 10/12/25 11:10 16 10/12/25 11:10 36.7 C 16 10/12/25 11:09 105 H 100 10/12/25 11:04 101 H 100 10/12/25 11:00 18 10/12/25 11:00 18 10/12/25 10:59 89 100 10/12/25 10:57 90 129/88 10/12/25 10:54 91 H 100 10/12/25 10:49 91 H 100 10/12/25 10:44 88 100 10/12/25 10:42 87 126/84 10/12/25 10:39 86 98 10/12/25 10:34 87 99 10/12/25 10:30 18 10/12/25 10:30 18 10/12/25 10:29 88 100 10/12/25 10:27 90 130/85 10/12/25 10:24 85 98 10/12/25 10:19 86 99 10/12/25 10:14 85 99 10/12/25 10:11 87 128/84 10/12/25 10:09 86 99 10/12/25 10:04 86 99 10/12/25 10:00 18 10/12/25 10:00 18 10/12/25 09:59 90 99 10/12/25 09:57 85 129/85 10/12/25 09:54 96 H 100 10/12/25 09:49 91 H 99 10/12/25 09:44 91 H 98 10/12/25 09:41 97 H 120/84 10/12/25 09:39 91 H 97 10/12/25 09:34 91 H 97 10/12/25 09:30 18 10/12/25 09:30 18 10/12/25 09:29 95 H 97 10/12/25 09:27 94 H 116/76 10/12/25 09:24 92 H 97 10/12/25 09:19 92 H 98 10/12/25 09:14 90 97 10/12/25 09:11 94 H 113/73 10/12/25 09:10 16 10/12/25 09:10 37.1 C 16 10/12/25 09:09 97 H 97 10/12/25 09:04 90 97 10/12/25 09:00 18 10/12/25 09:00 18 10/12/25 08:59 90 97 10/12/25 08:58 88 113/68 10/12/25 08:54 90 98 10/12/25 08:49 90 97 10/12/25 08:44 90 97 10/12/25 08:43 93 H 110/73 10/12/25 08:39 83 98 10/12/25 08:34 81 97 10/12/25 08:29 82 98 10/12/25 08:27 82 130/81 10/12/25 08:24 81 97 10/12/25 08:19 88 98 10/12/25 08:14 86 98 10/12/25 08:13 82 132/82 10/12/25 08:09 88 98 10/12/25 08:04 82 98 10/12/25 08:00 16 10/12/25 08:00 16 10/12/25 07:59 88 98 10/12/25 07:56 86 130/86 10/12/25 07:54 82 98 10/12/25 07:49 90 98 10/12/25 07:44 87 98 10/12/25 07:42 85 129/84 10/12/25 07:39 89 98 10/12/25 07:34 94 H 98 10/12/25 07:30 18 10/12/25 07:30 18 10/12/25 07:29 90 98 10/12/25 07:28 86 125/83 10/12/25 07:24 89 99 10/12/25 07:21 Room Air 10/12/25 07:19 90 98 10/12/25 07:14 90 99 10/12/25 07:13 36.8 C 87 18 130/83 10/12/25 07:09 90 99 10/12/25 07:04 96 H 98 10/12/25 06:59 87 98 10/12/25 06:58 85 130/81 10/12/25 06:54 88 98 10/12/25 06:49 87 98 10/12/25 06:44 89 97 10/12/25 06:41 86 129/81 10/12/25 06:39 90 98 10/12/25 06:34 91 H 98 10/12/25 06:29 90 100 10/12/25 06:28 90 127/83 10/12/25 06:24 90 99 10/12/25 06:19 96 H 98 10/12/25 06:14 89 98 10/12/25 06:12 87 130/87 10/12/25 06:09 92 H 99 10/12/25 06:04 90 98 10/12/25 06:00 18 10/12/25 06:00 18 10/12/25 05:59 88 98 10/12/25 05:57 90 132/84 10/12/25 05:54 88 99 10/12/25 05:49 91 H 100 10/12/25 05:44 97 H 99 10/12/25 05:42 93 H 109/67 10/12/25 05:39 92 H 98 10/12/25 05:34 95 H 97 10/12/25 05:30 18 10/12/25 05:30 18 10/12/25 05:29 94 H 109/65 98 10/12/25 05:24 92 H 98 10/12/25 05:19 93 H 97 10/12/25 05:14 95 H 98 10/12/25 05:11 93 H 112/68 10/12/25 05:09 94 H 98 10/12/25 05:04 94 H 98 Coding Level of Care Code None Diagnoses Encounter for induction of labor Z34.90
--- NOTE | 2025-10-12 19:20 | Labor Progress Brief Note ---
Date of Service October 12, 2025 Subjective comfortable Assessment & Plan (1) Encounter for induction of labor: Plan continues to be unchanged after two additional hours, would've expected some change as should be in active labor now. Still not descending. Concern about ftp/ftd at this point. Will recheck again in one hour and if no change, plan to proceed with c/s. They agree. Admission and Anticipated Discharge Date Admission Date: October 11, 2025 Physical Exam Physical Exam: cx--7-8/100/-1 toco--q2-4min, pit continues at 30 efm--140s with mod variability, small accels, occasional variable/early Results & Data Vital Signs (Past 12 Hours) Vital Signs Temp Pulse Resp BP Pulse Ox O2 Del Method 10/12/25 19:14 95 H 100 10/12/25 19:11 97 H 139/91 10/12/25 19:09 98 H 98 10/12/25 19:04 97 H 98 10/12/25 19:00 18 10/12/25 19:00 37.3 C 18 10/12/25 18:59 97 H 98 10/12/25 18:56 101 H 129/86 10/12/25 18:54 95 H 98 10/12/25 18:49 95 H 98 10/12/25 18:44 95 H 99 10/12/25 18:42 93 H 130/84 10/12/25 18:39 96 H 99 10/12/25 18:34 95 H 99 10/12/25 18:30 16 10/12/25 18:30 16 10/12/25 18:29 96 H 100 10/12/25 18:26 96 H 148/86 H 10/12/25 18:24 92 H 99 10/12/25 18:19 95 H 100 10/12/25 18:14 99 H 100 10/12/25 18:12 98 H 140/84 10/12/25 18:09 97 H 100 10/12/25 18:04 97 H 152/97 H 100 10/12/25 18:00 18 10/12/25 18:00 18 10/12/25 17:59 96 H 100 10/12/25 17:56 94 H 145/98 H 10/12/25 17:54 93 H 100 10/12/25 17:49 97 H 100 10/12/25 17:44 96 H 100 10/12/25 17:41 92 H 146/97 H 10/12/25 17:39 96 H 100 10/12/25 17:34 97 H 100 10/12/25 17:30 16 10/12/25 17:30 16 10/12/25 17:29 105 H 97 10/12/25 17:26 96 H 143/93 H 10/12/25 17:24 93 H 100 10/12/25 17:19 93 H 99 10/12/25 17:14 99 10/12/25 17:14 92 H 10/12/25 17:14 92 H 137/91 10/12/25 17:09 99 H 100 10/12/25 17:04 103 H 100 10/12/25 17:00 18 10/12/25 17:00 18 10/12/25 16:59 103 H 100 10/12/25 16:57 102 H 135/86 10/12/25 16:54 18 10/12/25 16:54 37.1 C 100 H 18 100 10/12/25 16:49 97 H 100 10/12/25 16:47 93 H 150/94 H 10/12/25 16:44 98 H 100 10/12/25 16:41 99 H 147/94 H 10/12/25 16:39 96 H 100 10/12/25 16:34 95 H 100 10/12/25 16:30 16 10/12/25 16:30 16 10/12/25 16:29 95 H 100 10/12/25 16:26 96 H 135/89 10/12/25 16:24 97 H 100 10/12/25 16:19 95 H 100 10/12/25 16:14 95 H 100 10/12/25 16:12 90 138/90 10/12/25 16:09 98 H 100 10/12/25 16:04 91 H 100 10/12/25 15:59 92 H 100 10/12/25 15:58 91 H 139/90 10/12/25 15:54 94 H 99 10/12/25 15:49 97 H 98 10/12/25 15:44 96 H 100 10/12/25 15:42 98 H 131/81 10/12/25 15:39 99 H 100 10/12/25 15:34 97 H 100 10/12/25 15:30 18 10/12/25 15:30 37.4 C 18 10/12/25 15:29 98 H 100 10/12/25 15:27 97 H 126/78 10/12/25 15:24 97 H 100 10/12/25 15:19 99 H 100 10/12/25 15:14 97 H 100 10/12/25 15:12 109 H 144/99 H 10/12/25 15:09 94 H 100 10/12/25 15:04 93 H 100 10/12/25 15:00 18 10/12/25 15:00 18 10/12/25 14:59 94 H 100 10/12/25 14:56 101 H 144/98 H 10/12/25 14:54 96 H 99 10/12/25 14:49 96 H 99 10/12/25 14:44 99 H 100 10/12/25 14:41 96 H 133/90 10/12/25 14:39 99 H 99 10/12/25 14:34 97 H 100 10/12/25 14:30 16 10/12/25 14:30 16 10/12/25 14:29 101 H 100 10/12/25 14:26 96 H 140/97 10/12/25 14:24 105 H 99 10/12/25 14:19 94 H 100 10/12/25 14:14 92 H 100 10/12/25 14:11 93 H 129/92 10/12/25 14:09 94 H 100 10/12/25 14:04 93 H 100 10/12/25 14:00 18 10/12/25 14:00 18 10/12/25 13:59 94 H 100 10/12/25 13:56 91 H 134/90 10/12/25 13:54 95 H 96 10/12/25 13:49 90 99 10/12/25 13:44 91 H 99 10/12/25 13:42 90 129/89 10/12/25 13:39 100 H 98 10/12/25 13:34 93 H 98 10/12/25 13:30 16 10/12/25 13:30 36.8 C 16 10/12/25 13:29 97 H 98 10/12/25 13:27 100 H 123/75 10/12/25 13:24 95 H 97 10/12/25 13:19 99 H 98 10/12/25 13:14 92 H 98 10/12/25 13:13 90 123/75 10/12/25 13:09 92 H 97 10/12/25 13:04 93 H 98 10/12/25 12:59 91 H 97 10/12/25 12:57 90 127/77 10/12/25 12:54 92 H 98 10/12/25 12:49 92 H 97 10/12/25 12:44 92 H 98 10/12/25 12:41 93 H 125/74 10/12/25 12:39 92 H 98 10/12/25 12:34 94 H 98 10/12/25 12:29 92 H 99 10/12/25 12:27 92 H 121/76 10/12/25 12:24 95 H 98 10/12/25 12:19 93 H 99 10/12/25 12:14 92 H 99 10/12/25 12:12 93 H 126/76 10/12/25 12:09 95 H 99 10/12/25 12:04 92 H 98 10/12/25 11:59 94 H 99 10/12/25 11:58 99 H 114/73 10/12/25 11:54 91 H 98 10/12/25 11:49 95 H 99 10/12/25 11:44 98 H 100 10/12/25 11:41 96 H 139/95 10/12/25 11:39 93 H 100 10/12/25 11:34 92 H 99 10/12/25 11:30 20 10/12/25 11:30 20 10/12/25 11:29 97 H 100 10/12/25 11:26 96 H 137/93 10/12/25 11:24 92 H 100 10/12/25 11:19 95 H 100 10/12/25 11:14 93 H 100 10/12/25 11:11 96 H 133/90 10/12/25 11:10 16 10/12/25 11:10 36.7 C 16 10/12/25 11:09 105 H 100 10/12/25 11:04 101 H 100 10/12/25 11:00 18 10/12/25 11:00 18 10/12/25 10:59 89 100 10/12/25 10:57 90 129/88 10/12/25 10:54 91 H 100 10/12/25 10:49 91 H 100 10/12/25 10:44 88 100 10/12/25 10:42 87 126/84 10/12/25 10:39 86 98 10/12/25 10:34 87 99 10/12/25 10:30 18 10/12/25 10:30 18 10/12/25 10:29 88 100 10/12/25 10:27 90 130/85 10/12/25 10:24 85 98 10/12/25 10:19 86 99 10/12/25 10:14 85 99 10/12/25 10:11 87 128/84 10/12/25 10:09 86 99 10/12/25 10:04 86 99 10/12/25 10:00 18 10/12/25 10:00 18 10/12/25 09:59 90 99 10/12/25 09:57 85 129/85 10/12/25 09:54 96 H 100 10/12/25 09:49 91 H 99 10/12/25 09:44 91 H 98 10/12/25 09:41 97 H 120/84 10/12/25 09:39 91 H 97 10/12/25 09:34 91 H 97 10/12/25 09:30 18 10/12/25 09:30 18 10/12/25 09:29 95 H 97 10/12/25 09:27 94 H 116/76 10/12/25 09:24 92 H 97 10/12/25 09:19 92 H 98 10/12/25 09:14 90 97 10/12/25 09:11 94 H 113/73 10/12/25 09:10 16 10/12/25 09:10 37.1 C 16 10/12/25 09:09 97 H 97 10/12/25 09:04 90 97 10/12/25 09:00 18 10/12/25 09:00 18 10/12/25 08:59 90 97 10/12/25 08:58 88 113/68 10/12/25 08:54 90 98 10/12/25 08:49 90 97 10/12/25 08:44 90 97 10/12/25 08:43 93 H 110/73 10/12/25 08:39 83 98 10/12/25 08:34 81 97 10/12/25 08:29 82 98 10/12/25 08:27 82 130/81 10/12/25 08:24 81 97 10/12/25 08:19 88 98 10/12/25 08:14 86 98 10/12/25 08:13 82 132/82 10/12/25 08:09 88 98 10/12/25 08:04 82 98 10/12/25 08:00 16 10/12/25 08:00 16 10/12/25 07:59 88 98 10/12/25 07:56 86 130/86 10/12/25 07:54 82 98 10/12/25 07:49 90 98 10/12/25 07:44 87 98 10/12/25 07:42 85 129/84 10/12/25 07:39 89 98 10/12/25 07:34 94 H 98 10/12/25 07:30 18 10/12/25 07:30 18 10/12/25 07:29 90 98 10/12/25 07:28 86 125/83 10/12/25 07:24 89 99 10/12/25 07:21 Room Air Coding Level of Care Code None Diagnoses Encounter for induction of labor Z34.90
[2025-10-12] MEDS ORDERED: SODIUM CHLORIDE 0.9% 100 ML IV PRN (19:21)
[2025-10-12] MEDS: fentANYL 2 MCG/ML BUPIVacaine 0.125%-NSS 100ML BAG ONE (20:17)
--- NOTE | 2025-10-12 20:30 | Labor Progress Brief Note ---
Date of Service October 12, 2025 Subjective she is still comfortable, but notes she is completely exhausted and notes that she feels very fuzzy in her head. NOt sure she is able to continue. Assessment & Plan (1) Encounter for induction of labor: Plan Discussed that this is a change, but no lower and now some ant lip swelling. Can continue to labor. Discussed that if we get to 10cm, she needs to be ready to commit to pushing for what might be a couple of hours or so. She notes she is so exhausted at this point. Discussed that she needs to commit to the pushing part to continue laboring. Discussed it would not be in her best interest to get to 10cm and push without good effort and then decide on c/s. Discussed safer for her at this point to do surgery then to wait for that time. The risks of surgery were discussed with the patient including the risks of anesthesia, bleeding requiring transfusion, infection, poor wound healing, urinary retention, damage to surrounding structures including bowels, bladder, vessels, nerves and ureters that may require further surgery, hospitalization or intervention. The other risks of any surgery were discussed including heart attack, blood clots, stroke or . Discussed cut to fetus. Consent reviewed and signed. Plan to proceed. Admission and Anticipated Discharge Date Admission Date: October 11, 2025 Physical Exam Physical Exam: cx--8-9/some swelling in ant lip/-1 toco--q2-4min, pit at 30 efm--150s with min to mod variability, small accels, variables with contractions. Results & Data Vital Signs (Past 12 Hours) Vital Signs Temp Pulse Resp BP Pulse Ox 10/12/25 20:19 94 H 100 10/12/25 20:14 100 H 100 10/12/25 20:12 96 H 159/98 H 10/12/25 20:09 94 H 100 10/12/25 20:04 98 H 100 10/12/25 19:59 97 H 100 10/12/25 19:57 98 H 155/94 H 10/12/25 19:54 97 H 100 10/12/25 19:49 98 H 100 10/12/25 19:44 96 H 100 10/12/25 19:42 98 H 142/97 H 10/12/25 19:39 101 H 99 10/12/25 19:34 98 H 100 10/12/25 19:29 97 H 156/95 H 100 10/12/25 19:24 97 H 99 10/12/25 19:19 96 H 99 10/12/25 19:14 95 H 100 10/12/25 19:11 97 H 139/91 10/12/25 19:09 98 H 98 10/12/25 19:04 97 H 98 10/12/25 19:00 18 10/12/25 19:00 37.3 C 18 10/12/25 18:59 97 H 98 10/12/25 18:56 101 H 129/86 10/12/25 18:54 95 H 98 10/12/25 18:49 95 H 98 10/12/25 18:44 95 H 99 10/12/25 18:42 93 H 130/84 10/12/25 18:39 96 H 99 10/12/25 18:34 95 H 99 10/12/25 18:30 16 10/12/25 18:30 16 10/12/25 18:29 96 H 100 10/12/25 18:26 96 H 148/86 H 10/12/25 18:24 92 H 99 10/12/25 18:19 95 H 100 10/12/25 18:14 99 H 100 10/12/25 18:12 98 H 140/84 10/12/25 18:09 97 H 100 10/12/25 18:04 97 H 152/97 H 100 10/12/25 18:00 18 10/12/25 18:00 18 10/12/25 17:59 96 H 100 10/12/25 17:56 94 H 145/98 H 10/12/25 17:54 93 H 100 10/12/25 17:49 97 H 100 10/12/25 17:44 96 H 100 10/12/25 17:41 92 H 146/97 H 10/12/25 17:39 96 H 100 10/12/25 17:34 97 H 100 10/12/25 17:30 16 10/12/25 17:30 16 10/12/25 17:29 105 H 97 10/12/25 17:26 96 H 143/93 H 10/12/25 17:24 93 H 100 10/12/25 17:19 93 H 99 10/12/25 17:14 99 10/12/25 17:14 92 H 12/23/25 17:14 92 H 137/91 10/12/25 17:09 99 H 100 10/12/25 17:04 103 H 100 10/12/25 17:00 18 10/12/25 17:00 18 10/12/25 16:59 103 H 100 10/12/25 16:57 102 H 135/86 10/12/25 16:54 18 10/12/25 16:54 37.1 C 100 H 18 100 10/12/25 16:49 97 H 100 10/12/25 16:47 93 H 150/94 H 10/12/25 16:44 98 H 100 10/12/25 16:41 99 H 147/94 H 10/12/25 16:39 96 H 100 10/12/25 16:34 95 H 100 10/12/25 16:30 16 10/12/25 16:30 16 10/12/25 16:29 95 H 100 10/12/25 16:26 96 H 135/89 10/12/25 16:24 97 H 100 10/12/25 16:19 95 H 100 10/12/25 16:14 95 H 100 10/12/25 16:12 90 138/90 10/12/25 16:09 98 H 100 10/12/25 16:04 91 H 100 10/12/25 15:59 92 H 100 10/12/25 15:58 91 H 139/90 10/12/25 15:54 94 H 99 10/12/25 15:49 97 H 98 10/12/25 15:44 96 H 100 10/12/25 15:42 98 H 131/81 10/12/25 15:39 99 H 100 10/12/25 15:34 97 H 100 10/12/25 15:30 18 10/12/25 15:30 37.4 C 18 10/12/25 15:29 98 H 100 10/12/25 15:27 97 H 126/78 10/12/25 15:24 97 H 100 10/12/25 15:19 99 H 100 10/12/25 15:14 97 H 100 10/12/25 15:12 109 H 144/99 H 10/12/25 15:09 94 H 100 10/12/25 15:04 93 H 100 10/12/25 15:00 18 10/12/25 15:00 18 10/12/25 14:59 94 H 100 10/12/25 14:56 101 H 144/98 H 10/12/25 14:54 96 H 99 10/12/25 14:49 96 H 99 10/12/25 14:44 99 H 100 10/12/25 14:41 96 H 133/90 10/12/25 14:39 99 H 99 10/12/25 14:34 97 H 100 10/12/25 14:30 16 10/12/25 14:30 16 10/12/25 14:29 101 H 100 10/12/25 14:26 96 H 140/97 10/12/25 14:24 105 H 99 10/12/25 14:19 94 H 100 10/12/25 14:14 92 H 100 10/12/25 14:11 93 H 129/92 10/12/25 14:09 94 H 100 10/12/25 14:04 93 H 100 10/12/25 14:00 18 10/12/25 14:00 18 10/12/25 13:59 94 H 100 10/12/25 13:56 91 H 134/90 10/12/25 13:54 95 H 96 10/12/25 13:49 90 99 10/12/25 13:44 91 H 99 10/12/25 13:42 90 129/89 10/12/25 13:39 100 H 98 10/12/25 13:34 93 H 98 10/12/25 13:30 16 10/12/25 13:30 36.8 C 16 10/12/25 13:29 97 H 98 10/12/25 13:27 100 H 123/75 10/12/25 13:24 95 H 97 10/12/25 13:19 99 H 98 10/12/25 13:14 92 H 98 10/12/25 13:13 90 123/75 10/12/25 13:09 92 H 97 10/12/25 13:04 93 H 98 10/12/25 12:59 91 H 97 10/12/25 12:57 90 127/77 10/12/25 12:54 92 H 98 10/12/25 12:49 92 H 97 10/12/25 12:44 92 H 98 10/12/25 12:41 93 H 125/74 10/12/25 12:39 92 H 98 10/12/25 12:34 94 H 98 10/12/25 12:29 92 H 99 10/12/25 12:27 92 H 121/76 10/12/25 12:24 95 H 98 10/12/25 12:19 93 H 99 10/12/25 12:14 92 H 99 10/12/25 12:12 93 H 126/76 10/12/25 12:09 95 H 99 10/12/25 12:04 92 H 98 10/12/25 11:59 94 H 99 10/12/25 11:58 99 H 114/73 10/12/25 11:54 91 H 98 10/12/25 11:49 95 H 99 10/12/25 11:44 98 H 100 10/12/25 11:41 96 H 139/95 10/12/25 11:39 93 H 100 10/12/25 11:34 92 H 99 10/12/25 11:30 20 10/12/25 11:30 20 10/12/25 11:29 97 H 100 10/12/25 11:26 96 H 137/93 10/12/25 11:24 92 H 100 10/12/25 11:19 95 H 100 10/12/25 11:14 93 H 100 10/12/25 11:11 96 H 133/90 10/12/25 11:10 16 10/12/25 11:10 36.7 C 16 10/12/25 11:09 105 H 100 10/12/25 11:04 101 H 100 10/12/25 11:00 18 10/12/25 11:00 18 10/12/25 10:59 89 100 10/12/25 10:57 90 129/88 10/12/25 10:54 91 H 100 10/12/25 10:49 91 H 100 10/12/25 10:44 88 100 10/12/25 10:42 87 126/84 10/12/25 10:39 86 98 10/12/25 10:34 87 99 10/12/25 10:30 18 10/12/25 10:30 18 10/12/25 10:29 88 100 10/12/25 10:27 90 130/85 10/12/25 10:24 85 98 10/12/25 10:19 86 99 10/12/25 10:14 85 99 10/12/25 10:11 87 128/84 10/12/25 10:09 86 99 10/12/25 10:04 86 99 10/12/25 10:00 18 10/12/25 10:00 18 10/12/25 09:59 90 99 10/12/25 09:57 85 129/85 10/12/25 09:54 96 H 100 10/12/25 09:49 91 H 99 10/12/25 09:44 91 H 98 10/12/25 09:41 97 H 120/84 10/12/25 09:39 91 H 97 10/12/25 09:34 91 H 97 10/12/25 09:30 18 10/12/25 09:30 18 10/12/25 09:29 95 H 97 10/12/25 09:27 94 H 116/76 10/12/25 09:24 92 H 97 10/12/25 09:19 92 H 98 10/12/25 09:14 90 97 10/12/25 09:11 94 H 113/73 10/12/25 09:10 16 10/12/25 09:10 37.1 C 16 10/12/25 09:09 97 H 97 10/12/25 09:04 90 97 10/12/25 09:00 18 10/12/25 09:00 18 10/12/25 08:59 90 97 10/12/25 08:58 88 113/68 10/12/25 08:54 90 98 10/12/25 08:49 90 97 10/12/25 08:44 90 97 10/12/25 08:43 93 H 110/73 10/12/25 08:39 83 98 10/12/25 08:34 81 97 10/12/25 08:29 82 98 10/12/25 08:27 82 130/81 10/12/25 08:24 81 97 Coding Level of Care Code None Diagnoses Encounter for induction of labor Z34.90
[2025-10-12] MEDS: ACETAMINOPHEN 500 MG TAB PO SCH (20:51)
[2025-10-12] MEDS: CITRIC ACID/SODIUM CITRATE 15 ML UDC PO SCH (21:24)
[2025-10-12] MEDS ORDERED: SUCCINYLCHOLINE CHLORIDE 20 MG/ML 10 ML VIAL IV ONE (21:25)
[2025-10-12] MEDS ORDERED: PROPOFOL IV EMULSION 10 MG/ML 20 ML VIAL IV ONE (21:25)
[2025-10-12] MEDS ORDERED: LIDOCAINE 2% MPF LOCAL 5 ML VIAL ONE (21:26)
[2025-10-12] MEDS ORDERED: OXYTOCIN 10 UNITS/ML VIAL ONE (21:35)
[2025-10-12] MEDS: AZITHROMYCIN 500 MG/255 ML BAG IV SCH (21:37)
[2025-10-12] MEDS ORDERED: MoRPHine SULFATE PF 1 MG/ML 10 ML AMP/VIAL ONE (21:41)
[2025-10-12] MEDS ORDERED: LACTATED RINGER'S 1,000 ML IV SCH (21:45)
[2025-10-12] MEDS ORDERED: MIDAZOLAM HCL 1 MG/ML 2ML VIAL ONE (21:49)
[2025-10-12] MEDS ORDERED: diphenhydrAMINE 50 MG/ML VIAL IV PRN (22:32)
[2025-10-12] MEDS ORDERED: HYDROmorphone INJ 0.5 MG/0.5 ML SYR IV PRN (22:32)
[2025-10-12] MEDS ORDERED: NALBUPHINE HCL INJ 10 MG/ML AMP IV PRN (22:32)
[2025-10-12] MEDS ORDERED: NALOXONE HCL 0.4 MG/1 ML VIAL/CARP IV PRN (22:32)
[2025-10-12] MEDS ORDERED: NALOXONE HCL 0.08 MG in SYRINGE 1.8 ML IV PRN (22:32)
[2025-10-12] MEDS ORDERED: NALOXONE HCL 1 MG in SODIUM CHLORIDE 0.9% 1,000 ML IV PRN (22:32)
[2025-10-12] MEDS ORDERED: LACTATED RINGER'S 500 ML IV PRN (22:32)
[2025-10-12] MEDS ORDERED: MEPERIDINE HCL 25 MG/ML CARP/VIAL IV PRN (22:32)
[2025-10-12] MEDS ORDERED: ONDANSETRON INJ 2 MG/ML 2 ML VIAL IV PRN (22:32)
[2025-10-12] MEDS ORDERED: MoRPHine SULFATE 2 MG/ML CARP IV PRN (22:32)
--- NOTE | 2025-10-12 22:36 | Operative Report ---
PG Post Operative Report Pre & Post Diagnosis Operation Date: 10/12/25 21:00 Pre-Op Diagnosis: at 39 weeks failure to progress maternal exhaustion Post-Op Diagnosis: Same as pre-op I identified the patient and participated in the time-out.: Yes Procedure Operation Date: 10/12/25 21:00 Actual Procedures p Primary low transverse Section in for the of a live male child @ 8093(Bilateral) - Latanya Vanessa MD, FACOG Surgeon Latanya Vanessa MD, FACOG Care Giver Tylor Scales RN Estimated Blood Loss 693 Findings Consistent with Post-Op Diagnosis viable male infant, direct op, apgars 8/9 nl uterus/tubes/ovs noted Fluids 1500cc uop--350cc Specimens none Drains bettencourt Anesthesia Type Labor Epidural Complications none Disposition Accompanied Patient To Recovery: Yes Disposition: L&D Indications iup at 39 weeks, iol for chtn/gdm, progressed to 9cm and slowed considerably and after discussion and patient noting exhaustion and not sure if she would be able to push effectively, decision made for c/s Description of Procedure The patient was taken to the operating room where she was identified verbally and by bracelet. She was transferred to the OR table. She was then placed in the supine position with a leftward tilt. A Bettencourt catheter had been placed sterilely. The epidural was dosed. the patient was prepped and draped in a normal standard fashion. the anesthetic was tested and found to be adequate. A time-out was held, identifying correct patient, procedure, positioning and preoperative antibiotics. There were no concerns. A Pfannenstiel skin incision was made with a knife and taken down to the underlying layer of fascia with the knife and Bovie electrocautery. Bleeding was attended to with the Bovie. The fascia was incised in the midline with the knife and taken out laterally with scissors. The superior edge of the fascial incision was grasped, elevated and the underlying layer of rectus muscle was taken off bluntly and with scissors. In a similar fashion, the inferior edge of the fascial incision was grasped, elevated and the underlying layer of rectus muscle was taken off bluntly and with scissors. The muscles were bluntly in the midline. The peritoneum was entered bluntly. The incision was then stretched. The bladder blade was placed. The vesicouterine peritoneum was identified, entered with scissors and taken out laterally with scissors. The b ladder flap was created digitally A hysterotomy incision was scored with a knife and the incision was stretched superiorly and inferiorly with the barrel lathe operator inside's fingers. The operators hand was placed into the incision and the head was delivered atraumatically in direct OP. Loose nuchal cord reduced. The nose and mouth were bulb suctioned. the rest of the was then delivered without difficulty. The nose and mouth were again bulb suctioned. The cord was clamped and cut and the was then handed off to the awaiting goat driver for drying and attention. Cord blood was obtained. The placenta was expressed. The uterus was exteriorized and cleared of all clot and debris with moistened laparotomy sponges. The hysterotomy incision was repaired in two layers, the first in a running locked layer, the second in an imbricating layer. Hemostasis was noted to be good. Posterior cul-de-sac was irrigated and cleared of all clot and debris. The hysterotomy incision was again inspected and one suture was needed for hemostasis. the uterus was reinteriorized. Hysterotomy incision was again inspected and found to be hemostatic. Rectus muscles were hemostatis. The fascia was then reapproximated with 0 Vicryl starting at the edges and meeting in the midline. The subcuticular tissues were copiously irrigated and bleeding was attended to with cautery. The skin was then closed with 4-0 Vicryl in a subcuticular fashion. All sponge lap and needle counts were correct x 2. the patient was taken to the recovery room in stable condition. I attest to the content of the Intraoperative Record and any orders documented therein. Any exceptions are noted below. OB Procedure Charges 68090
[2025-10-12] MEDS ORDERED: SENNA 8.6 MG TAB PO PRN (22:38)
[2025-10-12] MEDS ORDERED: PROMETHAZINE 12.5 MG/50.5 ML BAG IV PRN (22:38)
[2025-10-12] MEDS ORDERED: MAGNESIUM HYDROXIDE SUSP 30 ML UDC PO PRN (22:38)
[2025-10-12] MEDS ORDERED: diphenhydrAMINE Capsule 25 MG CAP PO PRN (22:38)
[2025-10-12] MEDS ORDERED: CALCIUM CARBONATE 500 MG CHEWABLE TAB PO PRN (22:38)
[2025-10-12] MEDS ORDERED: HYDROCORTISONE ACETATE 25 MG SUPP PR PRN (22:38)
[2025-10-12] MEDS ORDERED: NON-FORMULARY MEDICATION (Blood-Glucose Sensor [Dexcom G7 Sensor] device) SCH (22:38)
[2025-10-12] MEDS ORDERED: BENZOCAINE 20% SPRY 85 APPLN/85 GM CAN EXT PRN (22:38)
[2025-10-12] MEDS ORDERED: NO NARCOTICS OR SEDATIVES SCH (22:45)
[2025-10-12] MEDS ORDERED: DC INTRASPINAL MORPHINE SCH (22:45)
[2025-10-12] MEDS: KETOROLAC 30 MG/ML VIAL IV SCH (22:55)
[2025-10-12] MEDS: CARBOPROST TROMETHAMINE 250 MCG/ML AMPUL IM ONE (22:56)
[2025-10-12] MEDS: miSOPROStol 200 MCG TAB PR ONE (22:57)
--- NOTE | 2025-10-12 22:59 | Anesthesiology Progress Note ---
Date of Service October 12, 2025 Anesthesia Post Procedure Vital Signs Vital Signs: Temp Pulse Resp BP Pulse Ox O2 Del Method 10/12/25 22:55 88 102/65 10/12/25 22:54 88 95 10/12/25 22:53 89 94 10/12/25 22:49 87 94 10/12/25 22:48 88 94 10/12/25 22:45 16 10/12/25 22:45 89 101/63 10/12/25 22:44 87 96 10/12/25 22:43 86 93 10/12/25 22:39 86 95 10/12/25 22:35 16 10/12/25 22:25 36.6 C 88 16 89/52 L 95 10/12/25 21:24 98 H 98 10/12/25 21:19 100 H 99 10/12/25 21:14 94 H 99 10/12/25 21:13 93 H 156/91 H 10/12/25 21:09 94 H 100 10/12/25 21:04 93 H 100 10/12/25 20:59 93 H 100 10/12/25 20:56 93 H 157/95 H 10/12/25 20:54 94 H 100 10/12/25 20:49 93 H 100 10/12/25 20:44 96 H 100 10/12/25 20:42 93 H 162/94 H 10/12/25 20:39 96 H 100 10/12/25 20:34 92 H 100 10/12/25 20:29 95 H 100 10/12/25 20:27 95 H 161/97 H 10/12/25 20:24 91 H 100 10/12/25 20:19 94 H 100 10/12/25 20:14 100 H 100 10/12/25 20:12 96 H 159/98 H 10/12/25 20:09 94 H 100 10/12/25 20:04 98 H 100 10/12/25 20:00 37.5 C 10/12/25 19:59 97 H 100 10/12/25 19:57 98 H 155/94 H 10/12/25 19:54 97 H 100 10/12/25 19:49 98 H 100 10/12/25 19:44 96 H 100 10/12/25 19:42 98 H 142/97 H 10/12/25 19:39 101 H 99 10/12/25 19:34 98 H 100 10/12/25 19:29 97 H 156/95 H 100 10/12/25 19:24 97 H 99 10/12/25 19:19 96 H 99 10/12/25 19:14 95 H 100 10/12/25 19:11 97 H 139/91 10/12/25 19:09 98 H 98 10/12/25 19:04 97 H 98 10/12/25 19:00 18 10/12/25 19:00 37.3 C 18 10/12/25 18:59 97 H 98 10/12/25 18:56 101 H 129/86 10/12/25 18:54 95 H 98 10/12/25 18:49 95 H 98 10/12/25 18:44 95 H 99 10/12/25 18:42 93 H 130/84 10/12/25 18:39 96 H 99 10/12/25 18:34 95 H 99 10/12/25 18:30 16 10/12/25 18:30 16 10/12/25 18:29 96 H 100 10/12/25 18:26 96 H 148/86 H 10/12/25 18:24 92 H 99 10/12/25 18:19 95 H 100 10/12/25 18:14 99 H 100 10/12/25 18:12 98 H 140/84 10/12/25 18:09 97 H 100 10/12/25 18:04 97 H 152/97 H 100 10/12/25 18:00 18 10/12/25 18:00 18 10/12/25 17:59 96 H 100 10/12/25 17:56 94 H 145/98 H 10/12/25 17:54 93 H 100 10/12/25 17:49 97 H 100 10/12/25 17:44 96 H 100 10/12/25 17:41 92 H 146/97 H 10/12/25 17:39 96 H 100 10/12/25 17:34 97 H 100 10/12/25 17:30 16 10/12/25 17:30 16 10/12/25 17:29 105 H 97 10/12/25 17:26 96 H 143/93 H 10/12/25 17:24 93 H 100 10/12/25 17:19 93 H 99 10/12/25 17:14 99 10/12/25 17:14 92 H 10/12/25 17:14 92 H 137/91 10/12/25 17:09 99 H 100 10/12/25 17:04 103 H 100 10/12/25 17:00 18 10/12/25 17:00 18 10/12/25 16:59 103 H 100 10/12/25 16:57 102 H 135/86 10/12/25 16:54 18 10/12/25 16:54 37.1 C 100 H 18 100 10/12/25 16:49 97 H 100 10/12/25 16:47 93 H 150/94 H 10/12/25 16:44 98 H 100 10/12/25 16:41 99 H 147/94 H 10/12/25 16:39 96 H 100 10/12/25 16:34 95 H 100 10/12/25 16:30 16 10/12/25 16:30 16 10/12/25 16:29 95 H 100 10/12/25 16:26 96 H 135/89 10/12/25 16:24 97 H 100 10/12/25 16:19 95 H 100 10/12/25 16:14 95 H 100 10/12/25 16:12 90 138/90 10/12/25 16:09 98 H 100 10/12/25 16:04 91 H 100 10/12/25 15:59 92 H 100 10/12/25 15:58 91 H 139/90 10/12/25 15:54 94 H 99 10/12/25 15:49 97 H 98 10/12/25 15:44 96 H 100 10/12/25 15:42 98 H 131/81 10/12/25 15:39 99 H 100 10/12/25 15:34 97 H 100 10/12/25 15:30 18 10/12/25 15:30 37.4 C 18 10/12/25 15:29 98 H 100 10/12/25 15:27 97 H 126/78 10/12/25 15:24 97 H 100 10/12/25 15:19 99 H 100 10/12/25 15:14 97 H 100 10/12/25 15:12 109 H 144/99 H 10/12/25 15:09 94 H 100 10/12/25 15:04 93 H 100 10/12/25 15:00 18 10/12/25 15:00 18 10/12/25 14:59 94 H 100 10/12/25 14:56 101 H 144/98 H 10/12/25 14:54 96 H 99 10/12/25 14:49 96 H 99 10/12/25 14:44 99 H 100 10/12/25 14:41 96 H 133/90 10/12/25 14:39 99 H 99 10/12/25 14:34 97 H 100 10/12/25 14:30 16 10/12/25 14:30 16 10/12/25 14:29 101 H 100 10/12/25 14:26 96 H 140/97 10/12/25 14:24 105 H 99 10/12/25 14:19 94 H 100 10/12/25 14:14 92 H 100 10/12/25 14:11 93 H 129/92 10/12/25 14:09 94 H 100 10/12/25 14:04 93 H 100 10/12/25 14:00 18 10/12/25 14:00 18 10/12/25 13:59 94 H 100 10/12/25 13:56 91 H 134/90 10/12/25 13:54 95 H 96 10/12/25 13:49 90 99 10/12/25 13:44 91 H 99 10/12/25 13:42 90 129/89 10/12/25 13:39 100 H 98 10/12/25 13:34 93 H 98 10/12/25 13:30 16 10/12/25 13:30 36.8 C 16 10/12/25 13:29 97 H 98 10/12/25 13:27 100 H 123/75 10/12/25 13:24 95 H 97 10/12/25 13:19 99 H 98 10/12/25 13:14 92 H 98 10/12/25 13:13 90 123/75 10/12/25 13:09 92 H 97 10/12/25 13:04 93 H 98 10/12/25 12:59 91 H 97 10/12/25 12:57 90 127/77 10/12/25 12:54 92 H 98 10/12/25 12:49 92 H 97 10/12/25 12:44 92 H 98 10/12/25 12:41 93 H 125/74 10/12/25 12:39 92 H 98 10/12/25 12:34 94 H 98 10/12/25 12:29 92 H 99 10/12/25 12:27 92 H 121/76 10/12/25 12:24 95 H 98 10/12/25 12:19 93 H 99 10/12/25 12:14 92 H 99 10/12/25 12:12 93 H 126/76 10/12/25 12:09 95 H 99 10/12/25 12:04 92 H 98 10/12/25 11:59 94 H 99 10/12/25 11:58 99 H 114/73 10/12/25 11:54 91 H 98 10/12/25 11:49 95 H 99 10/12/25 11:44 98 H 100 10/12/25 11:41 96 H 139/95 10/12/25 11:39 93 H 100 10/12/25 11:34 92 H 99 10/12/25 11:30 20 10/12/25 11:30 20 10/12/25 11:29 97 H 100 10/12/25 11:26 96 H 137/93 10/12/25 11:24 92 H 100 10/12/25 11:19 95 H 100 10/12/25 11:14 93 H 100 10/12/25 11:11 96 H 133/90 10/12/25 11:10 16 10/12/25 11:10 36.7 C 16 10/12/25 11:09 105 H 100 10/12/25 11:04 101 H 100 10/12/25 11:00 18 10/12/25 11:00 18 10/12/25 10:59 89 100 10/12/25 10:57 90 129/88 10/12/25 10:54 91 H 100 10/12/25 10:49 91 H 100 10/12/25 10:44 88 100 10/12/25 10:42 87 126/84 10/12/25 10:39 86 98 10/12/25 10:34 87 99 10/12/25 10:30 18 10/12/25 10:30 18 10/12/25 10:29 88 100 10/12/25 10:27 90 130/85 10/12/25 10:24 85 98 10/12/25 10:19 86 99 10/12/25 10:14 85 99 10/12/25 10:11 87 128/84 10/12/25 10:09 86 99 10/12/25 10:04 86 99 10/12/25 10:00 18 10/12/25 10:00 18 10/12/25 09:59 90 99 10/12/25 09:57 85 129/85 10/12/25 09:54 96 H 100 10/12/25 09:49 91 H 99 10/12/25 09:44 91 H 98 10/12/25 09:41 97 H 120/84 10/12/25 09:39 91 H 97 10/12/25 09:34 91 H 97 10/12/25 09:30 18 10/12/25 09:30 18 10/12/25 09:29 95 H 97 10/12/25 09:27 94 H 116/76 10/12/25 09:24 92 H 97 10/12/25 09:19 92 H 98 10/12/25 09:14 90 97 10/12/25 09:11 94 H 113/73 10/12/25 09:10 16 10/12/25 09:10 37.1 C 16 10/12/25 09:09 97 H 97 10/12/25 09:04 90 97 10/12/25 09:00 18 10/12/25 09:00 18 10/12/25 08:59 90 97 10/12/25 08:58 88 113/68 10/12/25 08:54 90 98 10/12/25 08:49 90 97 10/12/25 08:44 90 97 10/12/25 08:43 93 H 110/73 10/12/25 08:39 83 98 10/12/25 08:34 81 97 10/12/25 08:29 82 98 10/12/25 08:27 82 130/81 10/12/25 08:24 81 97 10/12/25 08:19 88 98 10/12/25 08:14 86 98 10/12/25 08:13 82 132/82 10/12/25 08:09 88 98 10/12/25 08:04 82 98 10/12/25 08:00 16 10/12/25 08:00 16 10/12/25 07:59 88 98 10/12/25 07:56 86 130/86 10/12/25 07:54 82 98 10/12/25 07:49 90 98 10/12/25 07:44 87 98 10/12/25 07:42 85 129/84 10/12/25 07:39 89 98 10/12/25 07:34 94 H 98 10/12/25 07:30 18 10/12/25 07:30 18 10/12/25 07:29 90 98 10/12/25 07:28 86 125/83 10/12/25 07:24 89 99 10/12/25 07:21 Room Air 10/12/25 07:19 90 98 10/12/25 07:14 90 99 10/12/25 07:13 36.8 C 87 18 130/83 10/12/25 07:09 90 99 10/12/25 07:04 96 H 98 10/12/25 06:59 87 98 10/12/25 06:58 85 130/81 10/12/25 06:54 88 98 10/12/25 06:49 87 98 10/12/25 06:44 89 97 10/12/25 06:41 86 129/81 10/12/25 06:39 90 98 10/12/25 06:34 91 H 98 10/12/25 06:29 90 100 10/12/25 06:28 90 127/83 10/12/25 06:24 90 99 10/12/25 06:19 96 H 98 10/12/25 06:14 89 98 10/12/25 06:12 87 130/87 10/12/25 06:09 92 H 99 10/12/25 06:04 90 98 10/12/25 06:00 18 10/12/25 06:00 18 10/12/25 05:59 88 98 10/12/25 05:57 90 132/84 10/12/25 05:54 88 99 10/12/25 05:49 91 H 100 10/12/25 05:44 97 H 99 10/12/25 05:42 93 H 109/67 10/12/25 05:39 92 H 98 10/12/25 05:34 95 H 97 10/12/25 05:30 18 10/12/25 05:30 18 10/12/25 05:29 94 H 109/65 98 10/12/25 05:24 92 H 98 10/12/25 05:19 93 H 97 10/12/25 05:14 95 H 98 10/12/25 05:11 93 H 112/68 10/12/25 05:09 94 H 98 10/12/25 05:04 94 H 98 10/12/25 05:00 18 10/12/25 05:00 36.8 C 18 10/12/25 04:59 95 H 97 10/12/25 04:56 93 H 116/68 10/12/25 04:54 93 H 97 10/12/25 04:49 95 H 98 10/12/25 04:44 98 H 98 10/12/25 04:41 96 H 114/68 10/12/25 04:39 94 H 97 10/12/25 04:34 94 H 97 10/12/25 04:29 94 H 97 10/12/25 04:26 94 H 110/65 10/12/25 04:24 94 H 97 10/12/25 04:19 95 H 97 10/12/25 04:14 95 H 97 10/12/25 04:12 93 H 108/60 10/12/25 04:09 95 H 96 10/12/25 04:04 101 H 97 10/12/25 03:59 97 H 97 10/12/25 03:56 98 H 108/66 10/12/25 03:54 98 H 96 10/12/25 03:49 106 H 96 10/12/25 03:44 95 H 96 10/12/25 03:41 100 H 108/65 10/12/25 03:39 96 H 97 10/12/25 03:34 98 H 97 10/12/25 03:29 99 H 97 10/12/25 03:26 96 H 105/63 10/12/25 03:24 99 H 98 10/12/25 03:19 94 H 99 10/12/25 03:14 91 H 99 10/12/25 03:12 93 H 120/78 10/12/25 03:09 89 97 10/12/25 03:04 89 97 10/12/25 03:00 18 10/12/25 03:00 36.8 C 18 10/12/25 02:59 88 97 10/12/25 02:57 86 128/75 10/12/25 02:54 91 H 97 10/12/25 02:49 90 99 10/12/25 02:44 89 97 10/12/25 02:41 95 H 124/81 10/12/25 02:39 88 97 10/12/25 02:34 88 98 10/12/25 02:30 16 10/12/25 02:30 16 10/12/25 02:29 89 97 10/12/25 02:27 94 H 126/80 10/12/25 02:24 91 H 97 10/12/25 02:19 93 H 96 10/12/25 02:14 92 H 97 10/12/25 02:12 94 H 124/84 10/12/25 02:09 95 H 97 10/12/25 02:04 91 H 96 10/12/25 02:00 18 10/12/25 02:00 18 10/12/25 01:59 89 97 10/12/25 01:57 92 H 124/82 10/12/25 01:54 92 H 97 10/12/25 01:49 93 H 97 10/12/25 01:44 96 H 97 10/12/25 01:43 94 H 129/83 10/12/25 01:39 94 H 97 10/12/25 01:34 104 H 97 10/12/25 01:30 20 10/12/25 01:30 20 10/12/25 01:29 99 H 97 10/12/25 01:26 100 H 122/81 10/12/25 01:24 99 H 97 10/12/25 01:19 102 H 97 10/12/25 01:14 104 H 98 10/12/25 01:12 99 H 121/76 10/12/25 01:09 101 H 97 10/12/25 01:04 100 H 97 10/12/25 01:00 18 10/12/25 01:00 36.7 C 18 10/12/25 00:59 100 H 98 10/12/25 00:56 100 H 107/64 10/12/25 00:54 99 H 97 10/12/25 00:49 99 H 97 10/12/25 00:44 100 H 97 10/12/25 00:41 96 H 112/66 10/12/25 00:39 100 H 97 10/12/25 00:34 101 H 96 10/12/25 00:30 18 10/12/25 00:30 18 10/12/25 00:29 97 H 98 10/12/25 00:26 100 H 120/73 10/12/25 00:24 100 H 98 10/12/25 00:19 93 H 98 10/12/25 00:14 95 H 97 10/12/25 00:11 94 H 126/79 10/12/25 00:09 100 H 99 10/12/25 00:04 93 H 97 10/12/25 00:00 18 10/12/25 00:00 18 10/11/25 23:59 104 H 99 10/11/25 23:58 93 H 126/81 10/11/25 23:54 92 H 98 10/11/25 23:49 94 H 97 10/11/25 23:44 97 H 97 10/11/25 23:42 95 H 126/82 10/11/25 23:39 97 H 97 10/11/25 23:34 101 H 99 10/11/25 23:30 18 10/11/25 23:30 18 10/11/25 23:29 95 H 97 10/11/25 23:27 36.7 C 96 H 18 118/76 10/11/25 23:24 96 H 96 10/11/25 23:19 100 H 99 10/11/25 23:14 95 H 96 10/11/25 23:11 100 H 124/85 10/11/25 23:09 101 H 98 10/11/25 23:04 102 H 97 10/11/25 23:00 18 10/11/25 23:00 18 Transfer of Care Handoff Completed per policy Notes Mental Status: alert / awake / arousable Nausea / Vomiting: adequately controlled Pain: adequately controlled Airway Patency, RR, SpO2: stable & adequate BP & HR: stable & adequate Hydration State: stable & adequate Neuraxial Anesthesia: was administered and sensory block is resolving Anesthetic Complications: no major complications apparent and Pt Satisfied with anesthetic care Notes: epidural removed, tip intact
[2025-10-12] MEDS: LACTATED RINGER'S 1,000 ML IV SCH (23:14)
[2025-10-13] MEDS ORDERED: PHARMACY GLYCEMIC MGMT CONSULT PRN (00:04)
[2025-10-13] MEDS: INSULIN ASPART PER UNIT CHARGE SC SCH (01:11)
[2025-10-13] MEDS: SIMETHICONE 80 MG CHEW PO SCH (05:04)
[2025-10-13] MEDS: ACETAMINOPHEN 325 MG TAB PO SCH (05:05)
[2025-10-13] MEDS: LACTATED RINGER'S 1,000 ML IV SCH (06:03)
[2025-10-13] MEDS: DIPHTHER/TETAN/PERTUS Vaccine (Tdap, Adol/Adult) 0.5mL IM ONE (06:03)
[2025-10-13] MEDS: SODIUM CHLORIDE 0.9% 1,000 ML IV SCH (06:03)
[2025-10-13] MEDS: MoRPHine SULFATE PF 1 MG/ML 10 ML AMP/VIAL INT SPINAL ONE (06:03)
[2025-10-13] MEDS: OXYTOCIN 20 UNITS/LR 1,002 ML IV SCH (06:04)
[2025-10-13 06:50] LABS: Hematocrit (blood only) 29.5 % (37.0-47.0); Hemoglobin 9.9 g/dL (12.0-16.0); Immature Granulocytes # (auto) 0.12 K/uL (0.01-0.20); Immature Granulocytes % (auto) 1.1 %; Mean Corpuscular Hemoglobin 29.2 pg (25.0-34.0); Mean Corpuscular Volume 87.0 fL (80.0-100.0); Platelet Count 111 K/uL (130-400); RDW Standard Deviation 48.4 fL (36.4-46.3); Red Blood Count 3.39 M/uL (4.20-5.40); White Blood Count 10.86 K/ul (4.8-10.8)
--- NOTE | 2025-10-13 06:58 | Obstetrical Progress Note ---
Date of Service October 13, 2025 Assessment & Plan (1) Delivery by section of full-term infant: (2) Chronic hypertension affecting : (3) Hypothyroidism affecting : (4) Diabetes mellitus affecting : (5) Encounter for supervision of elderly primigravida: (6) Tobacco smoking affecting , antepartum: Plan 40 yo post- day1 s/p . Fells well today. Vital signs stable Continue post- care Encourage ambulation and Pain controlled with ibuprofen Hgb stable Discharge home today, follow up with Dr. Vanessa in 6 weeks. Admission and Anticipated Discharge Date Admission Date: October 11, 2025 Supervising Physician Co-Signing Physician Notes Resident Physician Supervision Note: I interviewed and examined the patient. Discussed with Dr. Hyde and agree with findings and plan as documented in the note. Any exceptions or clarifications are listed here: Fresh pp/po. Feeling much better than immediate pp. Dressing clean and dry. Discussed surgery. Discussed postop course. Documented By: Latanya Vanessa MD, FACOG Subjective 40 yo post- day1 s/p . Ambulation: No. Voiding: No, On Ordonez's catheter Passing Gas:: No Diet Tolerance:: NPO Lochia:: Small Feeding Type:: bottle feeding Current Pain Level:Slight pain. Resting comfortably this AM in NAD. Denies MOLINA, CP, SOB, N/V/D, LE pain/swelling. Review of Systems Review of Systems: As per HPI. Physical Exam Physical Exam: General: patient resting comfortably, NAD, non-toxic in appearance, AA&O x 4, answers questions appropriately. Skin: warm, dry, intact HEENT: NC/AT, anicteric sclera, conjunctiva without injection, moist mucus membranes. Heart: +S1/S2, regular, no m/r/g Lungs: equal air entry bilaterally, no rales/rhonchi/wheezes Abd: +BS, soft, NT/ND, uterine fundus firm at umbilicus. Ext: warm, no clubbing/cyanosis or edema, Pema's neg. Neuro: nonfocal, patient AA&O x 4, speech intact, no facial droop, moving all extremities on command. Results & Data Vital Signs (Past 12 Hours) Vital Signs Temp Pulse Pulse Resp BP BP Pulse Ox 10/13/25 04:49 18 95 10/13/25 04:25 36.6 C 89 18 110/70 95 10/13/25 03:20 18 95 10/13/25 02:08 18 94 10/13/25 01:08 18 96 10/13/25 01:08 36.7 C 89 18 124/76 96 10/13/25 00:27 96 H 110/68 10/13/25 00:25 36.6 C 18 10/13/25 00:24 98 H 97 10/13/25 00:19 98 H 96 10/13/25 00:16 97 H 122/71 10/13/25 00:14 99 H 96 10/13/25 00:09 100 H 98 10/13/25 00:06 100 H 129/71 10/13/25 00:04 103 H 96 10/13/25 00:00 109 H 133/74 10/12/25 23:59 114 H 97 10/12/25 23:55 18 10/12/25 23:54 99 H 97 10/12/25 23:49 103 H 97 10/12/25 23:46 109 H 138/76 10/12/25 23:44 109 H 96 10/12/25 23:39 97 H 97 10/12/25 23:35 101 H 117/70 10/12/25 23:34 107 H 95 10/12/25 23:29 99 H 96 10/12/25 23:25 18 10/12/25 23:25 18 10/12/25 23:24 98 H 96 10/12/25 23:19 98 H 96 10/12/25 23:15 18 10/12/25 23:15 98 H 117/70 10/12/25 23:14 101 H 96 10/12/25 23:09 100 H 96 10/12/25 23:05 18 10/12/25 23:05 96 H 116/61 10/12/25 23:04 97 H 96 10/12/25 23:03 98 H 94 10/12/25 22:59 98 H 97 10/12/25 22:55 18 10/12/25 22:55 88 102/65 10/12/25 22:54 88 95 10/12/25 22:53 89 94 10/12/25 22:49 87 94 10/12/25 22:48 88 94 10/12/25 22:45 16 10/12/25 22:45 89 101/63 10/12/25 22:44 87 96 10/12/25 22:43 86 93 10/12/25 22:39 86 95 10/12/25 22:35 16 10/12/25 22:25 36.6 C 88 16 89/52 L 95 10/12/25 21:24 98 H 98 10/12/25 21:19 100 H 99 10/12/25 21:14 94 H 99 10/12/25 21:13 93 H 156/91 H 10/12/25 21:09 94 H 100 10/12/25 21:04 93 H 100 10/12/25 20:59 93 H 100 10/12/25 20:56 93 H 157/95 H 10/12/25 20:54 94 H 100 10/12/25 20:49 93 H 100 10/12/25 20:44 96 H 100 10/12/25 20:42 93 H 162/94 H 10/12/25 20:39 96 H 100 10/12/25 20:34 92 H 100 10/12/25 20:29 95 H 100 10/12/25 20:27 95 H 161/97 H 10/12/25 20:24 91 H 100 10/12/25 20:19 94 H 100 10/12/25 20:14 100 H 100 10/12/25 20:12 96 H 159/98 H 10/12/25 20:09 94 H 100 10/12/25 20:04 98 H 100 10/12/25 20:00 37.5 C 10/12/25 19:59 97 H 100 10/12/25 19:57 98 H 155/94 H 10/12/25 19:54 97 H 100 10/12/25 19:49 98 H 100 10/12/25 19:44 96 H 100 10/12/25 19:42 98 H 142/97 H 10/12/25 19:39 101 H 99 10/12/25 19:34 98 H 100 10/12/25 19:29 97 H 156/95 H 100 10/12/25 19:24 97 H 99 10/12/25 19:19 96 H 99 10/12/25 19:14 95 H 100 10/12/25 19:11 97 H 139/91 10/12/25 19:09 98 H 98 10/12/25 19:04 97 H 98 10/12/25 19:00 18 10/12/25 19:00 37.3 C 18 10/12/25 18:59 97 H 98 O2 Del Method 10/13/25 04:49 10/13/25 04:25 Room Air 10/13/25 03:20 10/13/25 02:08 10/13/25 01:08 10/13/25 01:08 Room Air 10/13/25 00:27 10/13/25 00:25 10/13/25 00:24 10/13/25 00:19 10/13/25 00:16 10/13/25 00:14 10/13/25 00:09 10/13/25 00:06 10/13/25 00:04 10/13/25 00:00 10/12/25 23:59 10/12/25 23:55 10/12/25 23:54 10/12/25 23:49 10/12/25 23:46 10/12/25 23:44 10/12/25 23:39 10/12/25 23:35 10/12/25 23:34 10/12/25 23:29 10/12/25 23:25 10/12/25 23:25 10/12/25 23:24 10/12/25 23:19 10/12/25 23:15 10/12/25 23:15 10/12/25 23:14 10/12/25 23:09 10/12/25 23:05 10/12/25 23:05 10/12/25 23:04 10/12/25 23:03 10/12/25 22:59 10/12/25 22:55 10/12/25 22:55 10/12/25 22:54 10/12/25 22:53 10/12/25 22:49 10/12/25 22:48 10/12/25 22:45 10/12/25 22:45 10/12/25 22:44 10/12/25 22:43 10/12/25 22:39 10/12/25 22:35 10/12/25 22:25 10/12/25 21:24 10/12/25 21:19 10/12/25 21:14 10/12/25 21:13 10/12/25 21:09 10/12/25 21:04 10/12/25 20:59 10/12/25 20:56 10/12/25 20:54 10/12/25 20:49 10/12/25 20:44 10/12/25 20:42 10/12/25 20:39 10/12/25 20:34 10/12/25 20:29 10/12/25 20:27 10/12/25 20:24 10/12/25 20:19 10/12/25 20:14 10/12/25 20:12 10/12/25 20:09 10/12/25 20:04 10/12/25 20:00 10/12/25 19:59 10/12/25 19:57 10/12/25 19:54 10/12/25 19:49 10/12/25 19:44 10/12/25 19:42 10/12/25 19:39 10/12/25 19:34 10/12/25 19:29 10/12/25 19:24 10/12/25 19:19 10/12/25 19:14 10/12/25 19:11 10/12/25 19:09 10/12/25 19:04 10/12/25 19:00 10/12/25 19:00 10/12/25 18:59 Resident Activity Tracking Resident Involvement: Resident Care Provided Care Provided: Adult Hospital Medicine (3) Hypothyroidism affecting Trimester: third trimester Qualified Code(s): O99.283 - Endocrine, nutritional and metabolic diseases complicating , third trimester; E03.9 - Hypothyroidism, unspecified (4) Diabetes mellitus affecting Trimester: third trimester Qualified Code(s): O24.913 - Unspecified diabetes mellitus in , third trimester (5) Encounter for supervision of elderly primigravida Trimester: third trimester Qualified Code(s): O09.513 - Supervision of elderly primigravida, third trimester
[2025-10-13] MEDS: DOCUSATE SODIUM 100 MG CAP PO SCH (09:35)
[2025-10-13] MEDS: FERROUS SULFATE 325 MG TAB PO SCH (09:35)
[2025-10-13] MEDS: PRENATAL VITAMIN 1 TAB PO SCH (09:35)
--- NOTE | 2025-10-13 14:31 | Pharmacy Report ---
Pharmacy Glycemic Short Note 2 - Date of Service October 13, 2025 - Glycemic Short OUTPATIENT ANTIDIABETIC REGIMEN: * Pulled from 08/23/25 Endo note : basal 18 units, boluses just once daily with dinner ASSESSMENT: * 40 year old s/p c section 10/12 - pharmacy consulted for glycemic management. Type 2 diabetic - follows with [facility] for diabetes management. Per patient before only on metformin (max dose). Endo notes suggest likely restarting metformin post delivery. BSGs elevated overnight, given 5 units of novolog and trended down to 77 mg/dL this AM. Will continue with SSI for now and have scale on for basal at HS if BSGs >180 PLAN FOR INPATIENT GLYCEMIC CONTROL: * Hold outpatient oral diabetes medications * Basal insulin * Lantus 0-10 units HS * Bolus insulin * NovoLog per scale ACHS or Q6hrs while NPO * Goal Range: Low 120 mg/dL - High 160 mg/dL * Correction Factor: 25 mg/dL/unit * Nutritional / Prandial insulin per carb ratio of 1 unit per 15 grams CHO consumed
[2025-10-13] MEDS ORDERED: ONDANSETRON INJ 2 MG/ML 2 ML VIAL IV PRN (16:33)
[2025-10-13] MEDS ORDERED: diphenhydrAMINE 50 MG/ML VIAL IV PRN (16:33)
[2025-10-13] MEDS ORDERED: HYDROmorphone INJ 0.5 MG/0.5 ML SYR IV PRN (16:33)
[2025-10-13] MEDS: Continuous Glucose Monitor SCH (18:07)
[2025-10-13] MEDS: LANTUS PER UNIT CHARGE SC SCH (21:36)
[2025-10-13] MEDS: IBUPROFEN 600 MG TAB PO SCH (22:52)
[2025-10-13] MEDS ORDERED: KETOROLAC 30 MG/ML VIAL IV PRN (23:00)
[2025-10-14 06:57] LABS: Hematocrit (blood only) 26.1 % (37.0-47.0); Hemoglobin 8.8 g/dL (12.0-16.0)
--- NOTE | 2025-10-14 07:38 | Obstetrical Progress Note ---
Date of Service October 14, 2025 Assessment & Plan (1) Delivery by section of full-term : Postoperative day #2 she is doing well ambulating no extremity pain minimal bleeding continue current care Subjective Ambulation: ambulating normally Voiding: no voiding problems Passing Gas:: Yes Diet Tolerance:: regular diet Lochia:: Small Physical Exam Constitutional WD/WN, vitals as above well developed and well nourished Respiratory normal respiratory effort, lungs clear to auscultation normal respiratory effort Cardiovascular RRR, no murmur, no edema Gastrointestinal (Abdomen) normal bowel sounds, soft, nontender, no hepatosplenomegaly Results & Data Vital Signs (Past 12 Hours) Vital Signs Temp Pulse Pulse Resp BP Pulse Ox O2 Del Method 10/13/25 22:28 97.7 F 94 H 20 105/70 Room Air 10/13/25 19:45 98.1 F 88 20 100/65 95 Room Air
--- NOTE | 2025-10-14 13:15 | Pharmacy Report ---
Pharmacy Glycemic Short Note 2 - Date of Service October 14, 2025 - Glycemic Short OUTPATIENT ANTIDIABETIC REGIMEN: * Pulled from 08/23/25 Endo note : basal 18 units, boluses just once daily with dinner ASSESSMENT: 10/14 * Patient's blood sugars well controlled: [id number]/dl over last 24 hours on only 2-3 units of insulin each check for carb coverage only. Did have one higher reading just now at 153mg/dl, but that was due to eating a piece of pie prior to the accu-check without insulin coverage. * Patient tolerating diet, will remove CR and add metformin back on at this time, NovoLog CF only for ACHS. 10/13 * 40 year old s/p c section 10/12 - pharmacy consulted for glycemic management. Type 2 diabetic - follows with [facility] for diabetes management. Per patient before only on metformin (max dose). Endo notes suggest likely restarting metformin post delivery. BSGs elevated overnight, given 5 units of NovoLog and trended down to 77 mg/dL this AM. Will continue with SSI for now and have scale on for basal at HS if BSGs >180 PLAN FOR INPATIENT GLYCEMIC CONTROL: * Resume metformin 500mg PO BID with meals * Basal insulin * DC * Bolus insulin * NovoLog per scale ACHS or Q6hrs while NPO * Goal Range: Low 110 mg/dL - High 140 mg/dL * Correction Factor: 25 mg/dL/unit * DC: Nutritional / Prandial insulin per carb ratio of 1 unit per -- grams CHO consumed
[2025-10-14] MEDS ORDERED: Nursing to Pharmacy Communication SCH (20:30)
[2025-10-15] MEDS: IBUPROFEN 600 MG TAB PO PRN (00:02)
[2025-10-15] MEDS: ACETAMINOPHEN 325 MG TAB PO PRN (05:52)
--- NOTE | 2025-10-15 07:27 | Obstetrical Progress Note ---
Date of Service October 15, 2025 Assessment & Plan (1) Delivery by section of full-term : (2) Chronic hypertension affecting : (3) Hypothyroidism affecting : (4) Diabetes mellitus affecting : (5) Encounter for supervision of elderly primigravida: (6) Tobacco smoking affecting , antepartum: Plan 40 yo post- day3 s/p . Fells well today. Vital signs stable Continue post- care Encourage ambulation and Pain controlled with ibuprofen Hgb stable Discharge home today, follow up with Dr. Vanessa in 6 weeks. Admission and Anticipated Discharge Date Admission Date: October 11, 2025 Supervising Physician Co-Signing Physician Notes Resident Physician Supervision Note: I interviewed and examined the patient. Discussed with Dr. Jarvis and agree with findings and plan as documented in the note. Any exceptions or clarifications are listed here: POD3 doing well. DC home. Rx sent #10 tabs oxycodone. Documented By: Filomena Ross, DO Subjective 40 yo post- day3 s/p . Ambulation: Ambulating normally. Voiding: Yes Passing Gas:: Yes Diet Tolerance:: Regular diet. Lochia:: Small Feeding Type:: breast feeding Current Pain Level:Burning sensation ans pain on incision site. Resting comfortably this AM in NAD. Denies MOLINA, CP, SOB, N/V/D, LE pain/swelling. Review of Systems Review of Systems: As per HPI. Physical Exam Physical Exam: General: patient resting comfortably, NAD, non-toxic in appearance, AA&O x 4, answers questions appropriately. Skin: warm, dry, intact HEENT: NC/AT, anicteric sclera, conjunctiva without injection, moist mucus membranes. Heart: +S1/S2, regular, no m/r/g Lungs: equal air entry bilaterally, no rales/rhonchi/wheezes Abd: +BS, soft, NT/ND, uterine fundus firm at umbilicus, caesarean incision C/D/I. Ext: warm, no clubbing/cyanosis or edema, Pema's neg. Neuro: nonfocal, patient AA&O x 4, speech intact, no facial droop, moving all extremities on command. Results & Data Vital Signs (Past 12 Hours) Vital Signs Temp Pulse Resp BP Pulse Ox O2 Del Method 10/14/25 23:00 36.7 C 87 18 120/79 96 Room Air (3) Hypothyroidism affecting Trimester: third trimester Qualified Code(s): O99.283 - Endocrine, nutritional and metabolic diseases complicating , third trimester; E03.9 - Hypothyroidism, unspecified (4) Diabetes mellitus affecting Trimester: third trimester Qualified Code(s): O24.913 - Unspecified diabetes mellitus in , third trimester (5) Encounter for supervision of elderly primigravida Trimester: third trimester Qualified Code(s): O09.513 - Supervision of elderly primigravida, third trimester
[2025-10-15 10:24] VITALS: BP 119/77; RESP 16; TEMP 97.7; O2SAT 98
[2025-10-15 11:50] VITALS: PULSE 87
--- NOTE | 2025-10-18 21:46 | Discharge Summary ---
Date of Service October 18, 2025 Admission HPI Per Admitting Provider Mariaa is a 40-year-old G1, P0 currently at 40 weeks 0 days presents for induction of labor for type 2 diabetes and chronic hypertension. and Delivery Plans DM Protocol (Type 2 DM on Metformin) *Baby ASA daily, start 12-28wks, continue until del - started 03/31 *Ophthalmology consult - reminded to schedule *Dietary consult - working with Rema *Qmonthly urine cultures * [id number] 06/29/25----normal *Twice weekly NST's @32 or 34wks *Serial Growth US starting 28wks *Baseline 24hr Urine and Q trimester *EKG (Cardio [id number]) - completed NL *Deliver by [facility] IOL 10/11/25 (see tasks - pt aware rec is by 39 6/ d/t cHTN) Hypothyroid *Check TFTs Q4wks AMA *Weekly NST's @36 wks CHTN---No Meds *Baby ASA daily start 12-28 wks, continue until delivery *wkly NST's @32wks and twice wkly @36 wks *Serial Growth US @ 24 (doppler only if abnml) *Baseline 24hr urine (additioinal PRN) *weekly AMRITA's @ 32wk(If on Meds) *Deliver [id number] (If on Meds) *Deliver [id number] (Not on Meds) Smoking in says socially, rec dc Lab Results OB Labs: Blood Type O Positive 03/03/25 Antibody Screen NEGATIVE 03/03/25 Hgb 11.6 g/dl (12.0-16.0) L 07/29/25 Hct 35.5 % (37.0-47.0) L 07/29/25 MCV 85.4 fL (80.0-100.0) 03/03/25 Plt Count 213 K/uL (130-400) 03/03/25 Rubella IgG Antibody Immune (Immune) 03/03/25 Treponema pallidum Ab Negative (Negative) 07/29/25 Hep Bs Antigen Negative (Negative) 03/03/25 Hepatitis C Antibody Negative (Negative) 03/03/25 HIV 1&2 Ab/P24 Ag 4thGn Negative (Negative) 03/03/25 Maternal Serum AFP 27.6 ng/mL 04/28/25 OB Optional Labs: Chlamydia trachomatis RNA Not Detected (NotDetected) 03/03/25 Neisseria gonorrhoeae RNA Not Detected (NotDetected) 03/03/25 Thyroid Stimulating Hormone (TSH) 3.843 uIu/ml (0.300-4.500) 09/24/25 Alpha Fetoprotein Triple Screen SEE NOTE 04/28/25 Discharge Data Consultations 10/11/25 08:50 Consult Anesthesiology Stat Procedures Performed Operation Date: 10/12/25 21:00 Actual Procedures p Section in for the of a live male child @ 5694(Bilateral) - Latanya Vanessa MD, [facility] Course (1) Delivery by section of full-term infant: (2) Encounter for induction of labor: (3) Chronic hypertension affecting : (4) Encounter for supervision of elderly primigravida: (5) Hypothyroidism affecting : (6) Diabetes mellitus affecting : Plan Patient had a bettencourt placed for cervical ripening. When it was expelled about 12 hours later, she underwent an arom and then IOL. She had very slow progress of labor but did slowly progress to about 8-9cm. she then stalled. Fetus continued to be mostly a category one, reassruing category two. She was afebrile. Discussed the potential for continued labor vs. c/s. Patient noted she was exhausted and did not think that she would actually be able to push the baby out. Of note, the station continued to be high throughout, no lower than - 1 to -2. Decision made for c/s after discussion She underwent a primary low transverse c/s without complication. QBL--693 The patient's /postop course was uncomplicated--tolerated regular diet, pain controlled with oral pain meds, voided after removal of Bettencourt and ambulated without difficulty. d/c home on pod#3. d/c h/h was 8.8/26.1. Coding Level of Care Code None Diagnoses Delivery by section of full-term O82 Encounter for induction of labor Z34.90 Chronic hypertension affecting O10.919 Encounter for supervision of primigravida of advanced maternal age in third trimester O09.513 Trimester: third trimester Hypothyroidism affecting in third trimester O99.283; E03.9 Trimester: third trimester Diabetes mellitus affecting in third trimester O24.913 Trimester: third trimester
== END 2025-10-15 13:00 | disposition home or self-care (01) | DRG 786 ==
LOC: 4S1 10-11 08:25 → 4E2 10-13 01:18
DX: Z79.82 Long term (current) use of aspirin; O69.81X0 Labor and delivery complicated by cord around neck, without compression, not applicable or unspecified; E11.9 Type 2 diabetes mellitus without complications; Z37.0 Single live birth; O62.9 Abnormality of forces of labor, unspecified; O10.02 Pre-existing essential hypertension complicating childbirth; Z79.84 Long term (current) use of oral hypoglycemic drugs; Z79.899 Other long term (current) drug therapy; O99.333 Smoking (tobacco) complicating pregnancy, third trimester; O75.81 Maternal exhaustion complicating labor and delivery; O24.12 Pre-existing type 2 diabetes mellitus, in childbirth; E03.9 Hypothyroidism, unspecified; F17.200 Nicotine dependence, unspecified, uncomplicated; O99.344 Other mental disorders complicating childbirth; Z79.890 Hormone replacement therapy; Z3A.40 40 weeks gestation of pregnancy; O99.284 Endocrine, nutritional and metabolic diseases complicating childbirth; F41.9 Anxiety disorder, unspecified